=== PATIENT | female | born 1965 | race African-American/Black ===

== ENCOUNTER → 2016-10-30 | Outpatient (CLI) | payer OTHER ==
[2015-11-12 16:41] VITALS: BP 93/71
[~2016-10-30] MED LIST: ALPR0.5T PO; ALPR0.5T6 PO; ASPI325T11 PO; CLOP75TA PO; CLOP75TA57 PO; FAMO-63 PO; FERR-36 PO; FERR134T2 PO; LEVO25TA4 PO; LEVO75TA PO; METO1TAB7 PO; METO25TA4 PO; METO25TA9 PO; PANT40TA5 PO; SIMV20TA3 PO; SIMV5TAB5 PO; SPIR25TA3 PO
--- NOTE | 2016-10-30 13:11 | KCIC ---
PELVIS W/TV History: Severe chronic discharge for 6 months Comparison: None available at this time Findings: Multiple transabdominal sonographic images of the pelvis are submitted. Endometrium is thickened at 3.8 cm. Transverse uterus measured 9.2 cm. Transvaginal ultrasound: Multiple transvaginal sonographic images of the pelvis are submitted. Uterus measured up to 11.9 x 6.9 x 9.5 cm. Endometrium is thickened on the order of 3.5 cm, areas of internal hypervascularity on color Doppler imaging. There is mild free fluid in the endometrial cavity, also mild free fluid in the posterior cul-de-sac. Neither ovary could be visualized. There are nabothian cysts present. Impression: 1. Endometrium is thickened with areas of internal hypervascularity. Endometrial malignancy is possible, other consideration of hyperplasia. 2. Neither ovary could be visualized. 3. There is mild enlargement of the uterus. Electronically signed by: Golden Flores MD (10/30/2016 1:07 PM)
== END | disposition home or self-care (01) ==
LOC: KCIC US 11:58
PROVIDERS: ATTEND Nurse Practitioner Family
DX: N76.0 Acute vaginitis (principal); N85.2 Hypertrophy of uterus
CPT/HCPCS: 76830; 76856

== ENCOUNTER 2016-11-27 06:47 | Observation (INO) | payer OTHER ==
[~2016-11-27] VITALS: Ht 170.2 cm; Wt 172.4 kg
[2016-11-27] MEDS ORDERED: 0.9 % SODIUM CHLORIDE 10 ML DISP.SYRIN. IV PRN (07:00)
[2016-11-27] MEDS ORDERED: IV NORMAL SALINE 1000ML BAG 1,000 ML IV SCH (07:15)
[2016-11-27] MEDS ORDERED: ASPIRIN CHEWABLE 81 MG TABLET. PO ONE (07:15)
--- NOTE | 2016-11-27 07:18 | PHYS DOC ---
Past Medical History Past Medical History: Asthma, CAD, High Cholesterol, Hypothyroid, [place] Additional Past Medical Histor: Esophageal bleed, Cardiac Stents x2. Past Surgical History: Cholecystectomy, Coronary Bypass Surgery, Additional Information: quit smoking 2008 Alcohol Use: None Drug Use: None Adult General Chief Complaint Chief Complaint: CHEST PAIN HPI HPI This is a pleasant 50-year-old female with a history of coronary artery disease prior stenting and CABG with a history of hypertension, hyperlipidemia, and sleep apnea presents with chest pain that began 11:30 PM last night that awoke her from sleep. About 11:30 last night patient woke up with the start complaining of palpitations with tingling and numbness in her left arm that is now resolved. The pain is described as squeezing pressure in the center of her chest with no radiation to her neck abdomen or back. She's had it before specifically what her apneic spells or higher. She has noted increased exercise intolerance and dyspnea on exertion. The chest pain which she has a lasting anywhere from 3-5 minutes described as a dull ache eczema sitting on her chest. She denies any nausea, vomiting, diarrhea or other symptoms. She denies any trauma weight gain or swelling her lower legs. She denies any travel outside the country or recent changes in medications. She is presently taking daily Plavix and aspirin she is a patient of Dr. Ferrer cardiology. Differential diagnosis for chest pain: Pericarditis, myocarditis, endocarditis, pneumothorax, pneumonia, aortic dissection, esophageal spasm, esophagitis, peptic ulcer disease, acute coronary syndrome, mediastinitis, Boerhaave syndrome , musculoskeletal chest wall pain, costochondritis, intercostal strain, rib fracture, pulmonary contusion, pneumonitis, pleural effusion, pericardial effusion, pericardial tamponode, and pleurisy. Was considered upon arrival patient had an immediate EKG, given aspirin orally, placed on oxygen IV was placed and appropriate cardiac workup was initiated. Review of Systems Review of Systems Constitutional: Denies fever or chills [] Eyes: Denies change in visual acuity, redness, or eye pain [] HENT: Denies nasal congestion or sore throat [] Respiratory: Patient doesn't but her shortness of breath with exertion. Cardiovascular: No additional information not addressed in HPI [] GI: Denies abdominal pain, nausea, vomiting, bloody stools or diarrhea [] : Denies dysuria or hematuria [] Musculoskeletal: Denies back pain or joint pain [] Integument: Denies rash or skin lesions [] Neurologic: Denies headache, focal weakness or sensory changes [] Endocrine: Denies polyuria or polydipsia [] Current Medications Current Medications Current Medications Medications (Trade) Dose Ordered Sig/Harsha Start Time Stop Time Status Last Admin Dose Admin Aspirin (Children'S Aspirin) 324 mg 1X ONCE 11/27/16 07:15 11/27/16 07:16 DC Sodium Chloride (Normal Saline Flush) 10 ml QSHIFT PRN 11/27/16 07:00 Allergies Allergies Allergies Coded Allergies Type Severity Reaction Last Updated Verified diazepam Allergy Severe Hives/shortness of breath/increased anxiety 11/27/16 Yes Physical Exam Physical Exam Patient's vital signs were reviewed noted to be hypertensive without hypoxia tachypnea or tachycardia. Constitutional: Well developed, well nourished, no acute distress, non-toxic appearance. Patient is morbidly obese but speaks in 12-40 was sentences without obvious shortness of breath. [] HENT: Normocephalic, atraumatic, bilateral external ears normal, oropharynx moist, no oral exudates, nose normal. [] Eyes: PERRLA, EOMI, conjunctiva normal, no discharge. [] Neck: Normal range of motion, no tenderness, supple, no stridor. [] Cardiovascular:Heart rate regular rhythm, no murmur [] Lungs & Thorax: Bilateral breath sounds clear to auscultation [] Abdomen: Bowel sounds normal, soft, no tenderness, no masses, no pulsatile masses. [] Skin: Warm, dry, no erythema, no rash. [] Back: No tenderness, no CVA tenderness. [] Extremities: No tenderness, no cyanosis, no clubbing, ROM intact, no edema. Neurologic: Alert and oriented X 3, normal motor function, normal sensory function, no focal deficits noted. [] Psychologic: Affect normal, judgement normal, mood normal. [] Current Patient Data Vital Signs Vital Signs Date Time Temp Pulse Resp B/P (MAP) Pulse Ox O2 Delivery O2 Flow Rate FiO2 11/27/16 08:18 54 16 133/83 (100) 97 Room Air 11/27/16 06:54 98.0 98.0 Lab Values Laboratory Tests Test 11/27/16 06:30 11/27/16 07:00 11/27/16 07:20 POC Urine HCG, Qualitative Hcg negative (Negative) White Blood Count 6.0 x10^3/uL (4.0-11.0) Red Blood Count 4.27 x10^6/uL (3.50-5.40) Hemoglobin 13.5 g/dL (12.0-15.5) Hematocrit 40.0 % (36.0-47.0) Mean Corpuscular Volume 94 fL (79-100) Mean Corpuscular Hemoglobin 32 pg (25-35) Mean Corpuscular Hemoglobin Concent 34 g/dL (31-37) Red Cell Distribution Width 12.8 % (11.5-14.5) Platelet Count 238 x10^3/uL (140-400) Neutrophils (%) (Auto) 47 % (31-73) Lymphocytes (%) (Auto) 39 % (24-48) Monocytes (%) (Auto) 9 % (0-9) Eosinophils (%) (Auto) 4 % (0-3) H Basophils (%) (Auto) 1 % (0-3) Neutrophils # (Auto) 2.8 x10^3uL (1.8-7.7) Lymphocytes # (Auto) 2.3 x10^3/uL (1.0-4.8) Monocytes # (Auto) 0.5 x10^3/uL (0.0-1.1) Eosinophils # (Auto) 0.2 x10^3/uL (0.0-0.7) Basophils # (Auto) 0.1 x10^3/uL (0.0-0.2) Sodium Level 141 mmol/L (136-145) Potassium Level 4.0 mmol/L (3.5-5.1) Chloride Level 106 mmol/L (98-107) Carbon Dioxide Level 24 mmol/L (21-32) Anion Gap 11 (6-14) Blood Urea Nitrogen 12 mg/dL (7-20) Creatinine 1.0 mg/dL (0.6-1.0) Estimated GFR (Cockcroft-Gault) 71.3 Glucose Level 114 mg/dL (70-99) H Calcium Level 9.6 mg/dL (8.5-10.1) Magnesium Level 1.9 mg/dL (1.8-2.4) Total Bilirubin 0.4 mg/dL (0.2-1.0) Direct Bilirubin 0.1 mg/dL (0.0-0.2) Aspartate Amino Transferase (AST) 28 U/L (15-37) Alanine Aminotransferase (ALT) 30 U/L (14-59) Alkaline Phosphatase 68 U/L (46-116) Creatine Kinase 265 U/L (26-192) H Creatine Kinase MB (Mass) 1.6 ng/mL (0.0-3.6) Creatine Kinase MB Relative Index 0.6 % (0-4) Troponin I Quantitative < 0.017 ng/mL (0.000-0.055) BT-Aap-A-Type Natriuretic Peptide 100 pg/mL (0-124) Total Protein 7.5 g/dL (6.4-8.2) Albumin 3.4 g/dL (3.4-5.0) Lipase 261 U/L (73-393) Thyroid Stimulating Hormone (TSH) 2.267 uIU/mL (0.358-3.74) Urine Collection Type Void Urine Color Yellow Urine Clarity Clear Urine pH 5.0 Urine Specific [place] 1.020 Urine Protein Negative mg/dL (NEG-TRACE) Urine Glucose (UA) Negative mg/dL (NEG) Urine Ketones (Stick) Negative mg/dL (NEG) Urine Blood Negative (NEG) Urine Nitrite Negative (NEG) Urine Bilirubin Negative (NEG) Urine Urobilinogen Dipstick 0.2 mg/dL (0.2 mg/dL) Urine Leukocyte Esterase Negative (NEG) Urine RBC 0 /HPF (0-2) Urine WBC 1-4 /HPF (0-4) Urine Squamous Epithelial Cells Mod /LPF Urine Bacteria Few /HPF (0-FEW) Urine Mucus Marked /LPF Laboratory Tests 11/27/16 07:00 Laboratory Tests 11/27/16 07:00 EKG EKG EKG read by Dr. Garrido timed 6:55 AM 11/27/2016 demonstrates sinus rhythm with a heart rate of 69 [place] interval is normal at 158 QRS of 94 QTC of 424. [] Radiology/Procedures Radiology/Procedures [] IMAGING REPORT Signed PATIENT: CARYN GUY ACCOUNT: [id number] : 1965 LOCATION: 2 [facility]OUTH AGE: 49 SEX: F EXAM STATUS: ADM IN ORD. PHYSICIAN: THANH MONTAÑO MD REASON: CHEST PAIN PROCEDURE: Left Heart Catheterization &LV APPROVED REPORT HISTORY coronary artery disease: previous PCI (The PCI date was ), hypertension, previous CABG (The CABG date was ), dyslipidemia. INDICATION The indication(s) include : unstable angina , chest pain, dyspnea. CASE TECHNIQUE The patient was brought electively into the cardiac catheterization lab. A timeout was performed confirming the patient's name, date of , procedure, and site of procedure. All necessary parties were wearing the appropriate personal protective equipment and radiation monitoring devices. After explaining the risks and benefits of the procedure, informed consent was obtained.(See nursing notes for medications administered). The right groin was sterilely prepped and draped. The right femoral groin was infiltrated with 1% Lidocaine subcutaneous anesthesia. During this case, Fluoroscopy and low osmolar contrast were used for imaging. A sheath was inserted into the right femoral artery without difficulty. Coronary angiography was performed using coronary diagnostic catheters. The left coronary system was accessed and visualized with a Diagnostic catheter. The right coronary system was accessed and visualized with a Diagnostic catheter. The left ventricle was accessed and visualized with a Diagnostic catheter. The left internal mammary artery was accessed and visualized with a Diagnostic catheter. Left ventricular/Aortic Valve gradient assessed on pullback. Left ventriculogram was performed in BEY projection. An aortogram of the ascending aorta was performed. Pre-demployment femoral angiogram was performed . Closure device was deployed with a Angioseal without any complications. The patient tolerated the procedure well and there were no complications associated with the procedure. Coronary Angiography The patient's coronary anatomy is right dominant. The left main coronary artery is a medium size vessel free of disease. The left main bifurcates to the left anterior descending and circumflex. The left anterior descending artery is a medium size vessel with stenosis. There is a 100% stenosis in the mid segment. The first diagonal branch is a small size vessel free of disease. The circumflex artery is a large size vessel free of disease. The first obtuse marginal branch is a medium size vessel free of disease. The second obtuse marginal branch is a small size vessel free of disease. The third obtuse marginal branch is a small size vessel free of disease. The right coronary artery is a medium size vessel free of disease. The right posterior descending artery is a small size vessel free of disease. The right posterolateral branch is a small size vessel free of disease. The left internal mammary artery to the mid left anterior descending artery segment is patent the LAD is a very small caliber vessel distal to the anastomosis. Left Ventriculography The left ventricle is normal in size with normal contractility. The left ventricular ejection fraction is estimated to be 55%. The left ventricular end diastolic pressure is 18 mmHg. There was no gradient across the aortic valve upon pullback. Conclusion This patient with iliamna vessel coronary artery disease passing the graft to the LAD that is open and normal. The LAD and the GUERRERO graft are very small in caliber. I do not see anything that would need to be stented in this patient. I would recommend medical treatment and consider a GI workup. DICTATED and SIGNED BY: THANH MONTAÑO MD DATE: 11/12/15 [id number] CC: THANH MONTAÑO MD; NELLY GUEVARA APRN ~ Course & Med Decision Making Course & Med Decision Making Pertinent Labs and Imaging studies reviewed. (See chart for details) I have reviewed nursing notes, history and physical findings, and present laboratory work as well as chest x-ray and EKG returned. At this point patient' s troponin is negative but given duration of symptoms and her history. She is at moderate risk for acute coronary event. Counseling Case Manager note: Assembly Line Robot Operator called at of the service Dr. Montaño Consult called back initially paged at 8:20 AM Discussed the case I presented and they agreed with admission. Time of acceptance 824 AM Differential diagnosis for chest pain: Pericarditis, myocarditis, endocarditis, pneumothorax, pneumonia, aortic dissection, esophageal spasm, esophagitis, peptic ulcer disease, acute coronary syndrome, mediastinitis, Boerhaave syndrome , musculoskeletal chest wall pain, costochondritis, intercostal strain, rib fracture, pulmonary contusion, pneumonitis, pleural effusion, pericardial effusion, pericardial tamponode, and pleurisy. Was considered upon arrival given patient's history and risk factors. History: Highly suspicious 2 points moderately suspicious 1. slightly suspicious 0 point EKG: ST segment depression 2. nonspecific repolarization disturbance 1. normal 0 point Age: Greater than 65 2 points, 65-45 1., less than 45 years old 0 points Risk factors:> 3 risk factors 2 points, 1-2 risk factors one point, no risk factors 0 point Troponin: > 2 times normal 2 points, 1-2 times normal 1., normal limits 0 point Total score: Score % pts MACE/n MACE Policy 0-3 32% 1.9% 0.05% Discharge 4-6 51% 413/3136 13% 1.3% Observation Risk management 7-10 17% 518/1045 50% 2.8% Observation Treatment, CAG She was determined to have an intermediate risk of acute coronary event so observation risk management to include a stress test and possible catheterization will be needed with his hospitalization. Patient denied discussed findings and agreed to admission 8:29 AM Impression: Chest pain unclear etiology likely cardiac, hypertension chronic in nature Disposition: Admission to the hospital cardiology service Dragon Disclaimer Dragon Disclaimer This electronic medical record was generated, in whole or in part, using a voice recognition dictation system. Departure Departure Impression: Primary Impression: Chest pain Additional Impression: Hypertension Disposition: ADMITTED INPATIENT Admitting Physician: Thanh Montaño Condition: GUARDED Referrals: NELLY GUEVARA APRN (PCP) Problem Qualifiers ABDIEL GARRIDO MD Nov 27, 2016 07:18
[2016-11-27 07:26] LABS: BASO # 0.1 x10^3/uL (0.0-0.2); BASO % 1 % (0-3); EOS % 4 % (0-3); HEMOGLOBIN 13.5 g/dL (12.0-15.5); LYMPH # 2.3 x10^3/uL (1.0-4.8); LYMPH % 39 % (24-48); MEAN CORPUSCULAR HEMOGLOBIN 32 pg (25-35); MEAN CORPUSCULAR HGB CONC 34 g/dL (31-37); MEAN CORPUSCULAR VOLUME 94 fL (79-100); MONO % 9 % (0-9); NEUT % 47 % (31-73); PLATELET COUNT 238 x10^3/uL (140-400); RED BLOOD COUNT 4.27 x10^6/uL (3.50-5.40); RED CELL DISTRIBUTION WIDTH 12.8 % (11.5-14.5)
[2016-11-27 07:31] LABS: BILIRUBIN,URINE NEGATIVE (NEG); GLUCOSE,URINE NEGATIVE (NEG); NITRITE,URINE NEGATIVE (NEG); PROTEIN,URINE NEGATIVE (NEG-TRACE); UROBILINOGEN,URINE 0.2 mg/dL (0.2 mg/dL)
[2016-11-27 07:38] LABS: CALCIUM 9.6 mg/dL (8.5-10.1); GFR 71.3
[2016-11-27 07:40] LABS: BACTERIA,URINE FEW /HPF (0-FEW); RBC,URINE 0 /HPF (0-2); SQUAMOUS EPITHELIAL CELL,UR MOD /LPF
[2016-11-27 07:43] LABS: ALBUMIN 3.4 g/dL (3.4-5.0); DIRECT BILIRUBIN 0.1 mg/dL (0.0-0.2); MAGNESIUM 1.9 mg/dL (1.8-2.4); TOTAL BILIRUBIN 0.4 mg/dL (0.2-1.0); TOTAL PROTEIN 7.5 g/dL (6.4-8.2)
[2016-11-27 07:50] LABS: CKMB MASS 1.6 ng/mL (0.0-3.6)
[2016-11-27] MEDS ORDERED: ONDANSETRON PF 4 MG/2 ML VIAL. IV PRN (08:30)
--- NOTE | 2016-11-27 09:00 | RAD ---
EXAM: Chest 2 views. HISTORY: Shortness of breath, tachycardia. COMPARISON: 11/11/2015. FINDINGS: Frontal and lateral views of the chest are obtained. There are changes of coronary artery bypass grafting. There are no confluent infiltrates. There is no pneumothorax or pleural effusion. The heart is not enlarged. IMPRESSION: 1. No confluent infiltrates.
[2016-11-27] MEDS: IV NORMAL SALINE 1000ML BAG 1,000 ML IV SCH ×2 (10:09→18:19)
--- NOTE | 2016-11-27 10:48 | EKG ---
[facility] [address] [place] [address] Test Date: 2016-11-27 Test Time: 06:55:27 Pat Name: CARYN GUY Department: Room: Gender: F Hematology Supervisor: : 1965 Requested By: ABDIEL GARRIDO Order Number: [id number] Reading MD: Measurements Intervals [place] Rate: 69 P: 41 MD: 158 QRS: 84 QRSD: 94 T: 97 QT: 394 QTc: 424 Interpretive Statements SINUS RHYTHM R-S TRANSITION ZONE IN V LEADS DISPLACED TO THE LEFT T ABNORMALITY IN HIGH LATERAL LEADS ABNORMAL ECG RI6.01 No previous ECG available for comparison
[2016-11-27 11:30] VITALS: BP 128/65
--- NOTE | 2016-11-27 13:30 | PDOC1 ---
History and Physical Date of Admission Date of Admission DATE: 11/27/16 TIME: 13:14 Identification/Chief Complaint Chief Complaint chest palpitations Problems: Source Source: Patient History of Present Illness History of Present Illness Ms Avilez is a 50 yr old female who presents with history of chest palpitations. She has a history of [place], and CABG. Last night she was awakened from sleep with her heart pounding. She was having some pain and shortness of breath during the episode. It lasted about 1 minute then subsided, the patient then states she was able to go back to bed. Patient states that over the past month she does feel like she has had progressive shortness of breath, but no episodes of chest pain or palpitations. She did mention she feels stressed right now due to various issues with family and work. Currently the patient feels fine. She was able to walk to the bathroom and get back in bed with only getting mildly short of breath. She currently reports no chest pain or palpitations Past Medical History Cardiovascular: CAD, Hyperlipidemia Pulmonary: Other Psych: Anxiety Endocrine: Hypothyroidism Past Surgical History Past Surgical History: Cholecystectomy, CABG, , Tubal Ligation, Hysterectomy Family History Family History: Cancer, Coronary Artery Disease, Diabetes Social History ALCOHOL: none Drugs: None Current Problem List Problem List Problems Medical Problems: (1) Chest pain Status: Acute (2) Hypertension Status: Acute Problems: Current Medications Current Medications Current Medications Aspirin (Children'S Aspirin) 324 mg 1X ONCE PO ; Start 11/27/16 at 07:15; Stop 11/27/16 at 07:16; Status DC Sodium Chloride 1,000 ml @ 1,000 mls/hr Q1H IV Last administered on 11/27/16t 07:37; Start 11/27/16 at 07:15; Stop 11/27/16 at 08:14; Status DC Sodium Chloride (Normal Saline Flush) 10 ml QSHIFT PRN IV AFTER MEDS AND BLOOD DRAWS; Start 11/27/16 at 07:00 Ondansetron HCl (Zofran) 4 mg PRN Q8HRS PRN IV NAUSEA/VOMITING; Start 11/27/16 at 08:30; Stop 11/28/16 at 08:29 Sodium Chloride 1,000 ml @ 100 mls/hr Q10H IV Last administered on 11/27/16t 10:09; Start 11/27/16 at 08:25; Stop 11/28/16 at 08:24 Active Scripts Active Reported Pantoprazole Sodium 40 Mg Tablet.dr 40 Mg PO DAILY Clopidogrel (Clopidogrel Bisulfate) 75 Mg Tablet 75 Mg PO DAILY Aspirin Ec (Aspirin) 325 Mg Tablet.dr 325 Mg PO DAILY Alprazolam 0.5 Mg Tablet 0.5 Mg PO BID Simvastatin 5 Mg Tablet 20 Mg PO HS Levothyroxine Sodium 25 Mcg Tablet 100 Mcg PO DAILY Spironolactone 25 Mg Tablet 25 Mg PO DAILY Allergies Allergies: Coded Allergies: diazepam (Verified Allergy, Severe, Hives/shortness of breath/increased anxiety, 11/27/16) Physical Exam General: Alert, No acute distress Lungs: Clear to auscultation (b/l), Normal air movement Heart: S1S2, RRR Extremities: Normal pulses (2/4 radial b/l) Vitals Vitals Vital Signs Date Time Temp Pulse Resp B/P (MAP) Pulse Ox O2 Delivery O2 Flow Rate FiO2 11/27/16 12:30 Room Air 11/27/16 11:30 97.5 65 20 128/65 (86) 97 97.5 Labs Labs Laboratory Tests Test 11/27/16 06:30 11/27/16 07:00 11/27/16 07:20 11/27/16 12:21 Bedside Urine HCG, Qualitative Hcg negative (Negative) White Blood Count 6.0 x10^3/uL (4.0-11.0) Red Blood Count 4.27 x10^6/uL (3.50-5.40) Hemoglobin 13.5 g/dL (12.0-15.5) Hematocrit 40.0 % (36.0-47.0) Mean Corpuscular Volume 94 fL (79-100) Mean Corpuscular Hemoglobin 32 pg (25-35) Mean Corpuscular Hemoglobin Concent 34 g/dL (31-37) Red Cell Distribution Width 12.8 % (11.5-14.5) Platelet Count 238 x10^3/uL (140-400) Neutrophils (%) (Auto) 47 % (31-73) Lymphocytes (%) (Auto) 39 % (24-48) Monocytes (%) (Auto) 9 % (0-9) Eosinophils (%) (Auto) 4 % (0-3) Basophils (%) (Auto) 1 % (0-3) Neutrophils # (Auto) 2.8 x10^3uL (1.8-7.7) Lymphocytes # (Auto) 2.3 x10^3/uL (1.0-4.8) Monocytes # (Auto) 0.5 x10^3/uL (0.0-1.1) Eosinophils # (Auto) 0.2 x10^3/uL (0.0-0.7) Basophils # (Auto) 0.1 x10^3/uL (0.0-0.2) Sodium Level 141 mmol/L (136-145) Potassium Level 4.0 mmol/L (3.5-5.1) Chloride Level 106 mmol/L (98-107) Carbon Dioxide Level 24 mmol/L (21-32) Anion Gap 11 (6-14) Blood Urea Nitrogen 12 mg/dL (7-20) Creatinine 1.0 mg/dL (0.6-1.0) Estimated GFR (Cockcroft-Gault) 71.3 Glucose Level 114 mg/dL (70-99) Calcium Level 9.6 mg/dL (8.5-10.1) Magnesium Level 1.9 mg/dL (1.8-2.4) Total Bilirubin 0.4 mg/dL (0.2-1.0) Direct Bilirubin 0.1 mg/dL (0.0-0.2) Aspartate Amino Transf (AST/SGOT) 28 U/L (15-37) Alanine Aminotransferase (ALT/SGPT) 30 U/L (14-59) Alkaline Phosphatase 68 U/L (46-116) Creatine Kinase 265 U/L (26-192) Creatine Kinase MB (Mass) 1.6 ng/mL (0.0-3.6) Creatine Kinase MB Relative Index 0.6 % (0-4) Troponin I Quantitative < 0.017 ng/mL (0.000-0.055) PQ-Qfa-S-Type Natriuretic Peptide 100 pg/mL (0-124) Total Protein 7.5 g/dL (6.4-8.2) Albumin 3.4 g/dL (3.4-5.0) Lipase 261 U/L (73-393) Thyroid Stimulating Hormone (TSH) 2.267 uIU/mL (0.358-3.74) Urine Collection Type Void Urine Color Yellow Urine Clarity Clear Urine pH 5.0 Urine Specific [place] 1.020 Urine Protein Negative mg/dL (NEG-TRACE) Urine Glucose (UA) Negative mg/dL (NEG) Urine Ketones (Stick) Negative mg/dL (NEG) Urine Blood Negative (NEG) Urine Nitrite Negative (NEG) Urine Bilirubin Negative (NEG) Urine Urobilinogen Dipstick 0.2 mg/dL (0.2 mg/dL) Urine Leukocyte Esterase Negative (NEG) Urine RBC 0 /HPF (0-2) Urine WBC 1-4 /HPF (0-4) Urine Squamous Epithelial Cells Mod /LPF Urine Bacteria Few /HPF (0-FEW) Urine Mucus Marked /LPF Glucose (Fingerstick) 92 mg/dL (70-99) Laboratory Tests Test 11/27/16 06:30 11/27/16 07:00 11/27/16 07:20 11/27/16 12:21 Bedside Urine HCG, Qualitative Hcg negative (Negative) White Blood Count 6.0 x10^3/uL (4.0-11.0) Red Blood Count 4.27 x10^6/uL (3.50-5.40) Hemoglobin 13.5 g/dL (12.0-15.5) Hematocrit 40.0 % (36.0-47.0) Mean Corpuscular Volume 94 fL (79-100) Mean Corpuscular Hemoglobin 32 pg (25-35) Mean Corpuscular Hemoglobin Concent 34 g/dL (31-37) Red Cell Distribution Width 12.8 % (11.5-14.5) Platelet Count 238 x10^3/uL (140-400) Neutrophils (%) (Auto) 47 % (31-73) Lymphocytes (%) (Auto) 39 % (24-48) Monocytes (%) (Auto) 9 % (0-9) Eosinophils (%) (Auto) 4 % (0-3) Basophils (%) (Auto) 1 % (0-3) Neutrophils # (Auto) 2.8 x10^3uL (1.8-7.7) Lymphocytes # (Auto) 2.3 x10^3/uL (1.0-4.8) Monocytes # (Auto) 0.5 x10^3/uL (0.0-1.1) Eosinophils # (Auto) 0.2 x10^3/uL (0.0-0.7) Basophils # (Auto) 0.1 x10^3/uL (0.0-0.2) Sodium Level 141 mmol/L (136-145) Potassium Level 4.0 mmol/L (3.5-5.1) Chloride Level 106 mmol/L (98-107) Carbon Dioxide Level 24 mmol/L (21-32) Anion Gap 11 (6-14) Blood Urea Nitrogen 12 mg/dL (7-20) Creatinine 1.0 mg/dL (0.6-1.0) Estimated GFR (Cockcroft-Gault) 71.3 Glucose Level 114 mg/dL (70-99) Calcium Level 9.6 mg/dL (8.5-10.1) Magnesium Level 1.9 mg/dL (1.8-2.4) Total Bilirubin 0.4 mg/dL (0.2-1.0) Direct Bilirubin 0.1 mg/dL (0.0-0.2) Aspartate Amino Transf (AST/SGOT) 28 U/L (15-37) Alanine Aminotransferase (ALT/SGPT) 30 U/L (14-59) Alkaline Phosphatase 68 U/L (46-116) Creatine Kinase 265 U/L (26-192) Creatine Kinase MB (Mass) 1.6 ng/mL (0.0-3.6) Creatine Kinase MB Relative Index 0.6 % (0-4) Troponin I Quantitative < 0.017 ng/mL (0.000-0.055) FU-Grm-Q-Type Natriuretic Peptide 100 pg/mL (0-124) Total Protein 7.5 g/dL (6.4-8.2) Albumin 3.4 g/dL (3.4-5.0) Lipase 261 U/L (73-393) Thyroid Stimulating Hormone (TSH) 2.267 uIU/mL (0.358-3.74) Urine Collection Type Void Urine Color Yellow Urine Clarity Clear Urine pH 5.0 Urine Specific [place] 1.020 Urine Protein Negative mg/dL (NEG-TRACE) Urine Glucose (UA) Negative mg/dL (NEG) Urine Ketones (Stick) Negative mg/dL (NEG) Urine Blood Negative (NEG) Urine Nitrite Negative (NEG) Urine Bilirubin Negative (NEG) Urine Urobilinogen Dipstick 0.2 mg/dL (0.2 mg/dL) Urine Leukocyte Esterase Negative (NEG) Urine RBC 0 /HPF (0-2) Urine WBC 1-4 /HPF (0-4) Urine Squamous Epithelial Cells Mod /LPF Urine Bacteria Few /HPF (0-FEW) Urine Mucus Marked /LPF Glucose (Fingerstick) 92 mg/dL (70-99) VTE Prophylaxis Ordered VTE Prophylaxis Devices: Yes VTE Pharmacological Prophylaxi: Yes Assessment/Plan Assessment/Plan Ms Avilez is a 50 yr old female who presents with heart palpitations 1) angina - serial troponin, ekg, echo 2) arrhythmia - as above If any of above tests are abnormal will do heart cath GOLD MALDONADO MD Nov 27, 2016 13:29
[2016-11-27 15:00] VITALS: BP 127/44
--- NOTE | 2016-11-27 18:27 | CARD ---
APPROVED REPORT EXAM: Two-dimensional and M-mode echocardiogram with Doppler and color Doppler. Other Information Quality : Average Rhythm : NSR INDICATION Dyspnea Chest Pain 2D DIMENSIONS RVDd2.5 (2.9-3.5cm)Left Atrium(2D)4.3 (1.6-4.0cm) IVSd1.1 (0.7-1.1cm)Aortic Root(2D)2.4 (2.0-3.7cm) LVDd5.3 (3.9-5.9cm)LVOT Diameter2.1 (1.8-2.4cm) PWd1.1 (0.7-1.1cm)LVDs3.6 (2.5-4.0cm) FS (%) 32.6 %SV82.5 ml LVEF(%)60.0 (>50%) Aortic Valve AoV Peak Isaias.110.0cm/sAoV VTI22.6cm AO Peak GR.4.8mmHgLVOT Peak Isaias.70.6cm/s LVOT VTI 16.31cmAO Mean GR.3mmHg SHARYN (VMAX)2.33kf0AJE (VTI)2.41cm2 Mitral Valve MV E Srcbatsv679.1cm/sMV DECEL [id number] MV A Mgvasqfw22.4cm/sMV QIW51jo E/A Ratio1.4MV A [id number] MVA (PHT)3.21cm2 TDI E/Lateral E'9.4E/Medial E'13.6 Pulmonary Valve PV Peak Lzxpzgmz233.9cm/sPV Peak Grad.6mmHg RVOT VTI19.7cm Tricuspid Valve TR P. Xtwurgoj548ct/sRAP HUFJYEME0zwMo TR Peak Gr.00kuNiBLXB81qmZn Pulmonary Vein S1 Hbdaxalh95.1cm/sD2 Xzugvyjl32.2cm/s LEFT VENTRICLE The left ventricle is normal size. There is normal left ventricular wall thickness. Left ventricle sy stolic function is normal. The Ejection Fraction is 60%. Dyskinesis of the apical septal wall. Remain muna of the LV appears to have normal function. The left ventricular diastolic function and filling is normal for age. There is no ventricular septal defect visualized. RIGHT VENTRICLE The right ventricle is normal size. The right ventricular systolic function is normal. ATRIA The left atrium is borderline dilated. The right atrium size is normal. The interatrial septum is int act with no evidence for an atrial septal defect or patent foramen ovale as noted on 2-D or Doppler i maging. AORTIC VALVE The aortic valve is mildly calcified. The aortic valve is trileaflet. Doppler and Color Flow revealed no significant aortic regurgitation. There is no significant aortic valvular stenosis. MITRAL VALVE The mitral valve is normal in structure and function. There is no mitral valve stenosis. Doppler and Color Flow revealed no mitral valve regurgitation noted. TRICUSPID VALVE The tricuspid valve is not well visualized. Doppler and Color Flow revealed trace to mild tricuspid r egurgitation. The PA pressure was estimated at 29 mmHg. There is no tricuspid valve stenosis. PULMONIC VALVE The pulmonic valve is not well visualized. Doppler and Color Flow revealed no pulmonic valvular regur gitation. There is no pulmonic valvular stenosis. GREAT VESSELS The aortic root is normal in size. Normal pulmonary venous flow (Doppler). The IVC was not well visua lized but appeared normal in size. PERICARDIAL EFFUSION There is no evidence of significant pericardial effusion. Critical Notification Critical Value: No <Conclusion> Left ventricle systolic function is normal. The Ejection Fraction is 60%. The left atrium is borderline dilated. The right atrium size is normal. The aortic valve is mildly calcified. The aortic valve is trileaflet. There is no significant aortic valvular stenosis. The mitral valve is normal in structure and function. Doppler and Color Flow revealed trace to mild tricuspid regurgitation. The PA pressure was estimated at 29 mmHg. The pulmonic valve is not well visualized. There is no evidence of significant pericardial effusion.
[2016-11-27 19:05] VITALS: BP 110/68
[2016-11-27] MEDS ORDERED: SIMVASTATIN 20 MG TABLET PO ONE (23:00)
[2016-11-27] MEDS ORDERED: ALPRAZolam 0.5 MG TABLET PO ONE (23:00)
[2016-11-27 23:09] VITALS: BP 120/30
--- NOTE | 2016-11-28 00:46 | ACF ---
Admission Forms Criteria CARDIOLOGY GRG Clinical Indications for Admission to Inpatient Care ( Place 'X' for any and all applicable criteria): Hospital admission is needed for appropriate care of the patient because of ANY ONE of the following (1): [ ] I. Hemodynamic instability as indicated by ALL of the following (1)(2)(3) (4)(5) [ ]a) Vital signs or other findings not as expected for chronic patient condition or baseline [ ]b) Instability indicated by ANY ONE of the following: [ ]i) Hypotension [ ]ii) Symptomatic Tachycardia unresponsive to treatment ( e.g., analgesia, fluids, sedation as indicated) [ ]iii) Inadequate perfusion indicated by ANY ONE of the following: [ ] 1) Lactic acidosis (> 2 mmol/L) [ ] 2) New abnormal capillary refill (> 3 seconds) [ ] 3) Reduced urine output [ ] 4) New altered mental status [ ]iv) Orthostatic vital sign changes unresponsive to treatment (e.g., fluids) [ ]v) IV inotropic or vasopressor medication required to maintain adequate blood pressure or perfusion [ ] II. Severe heart failure as indicated by ANY ONE of the following(17)(18) [ ]a) Respiratory distress [ ]b) Hypotension [ ]c) Anasarca (refractory to outpatient therapy) [ ]d) Cardiac arrhythmias of immediate concern [ ]e) Myocardial ischemia [ ] III. Cardiac arrhythmias or findings of immediate concern indicated by ANY ONE of the following (19)(20): [ ] a) Heart rhythms that are inherently dangerous or unstable indicated by ANY ONE of the following (21)(22)(23): [ ] i) Resuscitated ventricular fibrillation or cardiac arrest [ ] ii) Ventricular escape rhythm [ ] iii) Sustained ventricular tachycardia (30 seconds or more of ventricular rhythm at greater than 100 beats per minute) [ ] iv) Nonsustained ventricular tachycardia and ANY ONE of the following: [ ] 1) Suspected cardiac ischemia as cause or consequence of ventricular tachycardia [ ] 2) In setting of acute myocarditis [ ] b) Unstable cardiac conduction defects indicated by ANY ONE of the following(23)(24)(25) [ ] i) Type II second-degree atrioventricular block [ ]ii) Third-degree atrioventricular block [ ]iii) New-onset left bundle branch block with suspected myocardial ischemia [ ]c) Any heart rhythm and ANY ONE of the following (21)(22)(26)(27) (28) [ ] i) Continuous long-term ECG monitoring needed (e.g., initiation of drug requiring monitoring for more than 24 hours) [ ] ii) Patient has automatic implanted cardioverter defibrillator that is repeatedly firing, malfunctioning, or in need of immediate adjustment of settings beyond the scope of ambulatory or observation care [ ]d) Heart rhythms of concern due to ANY ONE of the following: [ ] i) Hypotension [ ] ii) Respiratory distress [ ] iii) Association with other significant symptoms (e.g., bradycardia with syncope or ongoing dizziness, supraventricular tachycardia with chest pain (14)(15)(17) [ ] IV. Monitoring for cardiac contusion beyond the scope of observation care needed [A](30)(31)(32) [ ] V. Surgical or device complication (e.g., valve replacement complication , pacemaker dysfunction) (35)(41)(44)(45)(46) [ ] . Inpatient palliative care needed. [B](49) Also use Inpatient Palliative Care Criteria [ ] VII. Nonbacterial thrombotic (marantic) endocarditis (36)(43)(47)(48) [X] VIII. Cardiology condition, symptom, or finding for which emergency and observation care has failed or are not considered appropriate. [ ] IX. Acute valvular disease requiring inpatient as indicated by ANY ONE of the following (41) [ ]a) Acute valvular regurgitation (42) [ ]b) Noninfectious valvulitis (43) [ ]c) Obstructive valve thrombosis [ ]d) Paravalvular leak [ ]e) Other significant valvular disorder remaining after emergency or observation level of care (as appropriate) [ ]X. Pericardial disease requiring inpatient treatment as indicated by ANY ONE of the following (33)(34)(35)(36)(37) [ ]a) Suspected tamponade (38)(39)(40) [ ]b) Hemopericardium [ ]c) Other significant pericardial disorder remaining after emergency or observation level of care (as appropriate) [ ] XI. Cardiac ischemia beyond scope of emergency and observation care. [ ] XII. Hypertension requiring inpatient treatment as indicated by ANY ONE of the following (6)(7)(8) [ ]a) SBP greater than 220 mm Hg or DBP greater than 120 mmHg despite treatment [ ]b) SBP greater than 140 mm Hg or DBP greater than 100 mm Hg with evidence of acute end organ damage as indicated by ANY ONE of the following [ ] i) Encephalopathy [ ] ii) Acute renal failure as indicated by new onset of ANY ONE of the following (9)(10)(11)(12)(13) [ ]1) 3-fold rise in serum creatinine from baseline [ ]2) Serum creatinine greater than 4 mg/dL ( 354 micromoles/L) with acute rise greater than 0.5 mg/dL (44.2 micromoles/L) [ ]3) Reduction of more than 75% in estimated glomerular filtration rate from baseline [ ]4) Estimated glomerular filtration rate less than 35 mL/min/1.73m2 (0.59 mL/sec/1.73m2) in child up to 18 years of age [ ]5) Cessation of urine output indicated by ALL of the following [ ]A. Adequate volume status [ ]B. Inadequate urine output as indicated by ANY ONE of the following [ ]a. Urine output less than 0.3 mL/kg/hr for 24 hours [ ]b. Anuria (urine output less than 0.1 mL/kg/hr) for 12 hours [ ] iii) Aortic dissection [ ] iv) Myocardial Ischemia [ ] v) Left ventricular heart failure [ ]vi) Retinal Hemorrhage [ ]vii) Other significant finding [ ]c) Hypertension in child requiring inpatient treatment as indicated by ALL of the following(14)(15)(16) [ ] i) Outpatient treatment not effective, not available, or not appropriate [ ]ii) SBP or DBP greater than 95th percentile for age [ ]iii) Evidence of acute end organ damage as indicated by ANY ONE of the following [ ]1) Altered mental status [ ]2) Acute renal failure as indicated by new onset of ANY ONE of the following(9)(10)(11)(12)(13) [ ]A. 3-fold rise in serum creatinine from baseline [ ]B. Serum creatinine greater than 4 mg/dL (354 micromoles/L) with acute rise greater than 0.5 mg/dL (44.2 micromoles/L) [ ]C. Reduction of more than 75% in estimated glomerular filtration rate from baseline [ ]D. Estimated glomerular filtration rate less than 35 mL/min/1.73m2 (0.59 mL/sec/1.73m2) in child up to 18 years of age [ ]E. Cessation of urine output indicated by ALL of the following [ ]a. Adequate volume status [ ]b. Inadequate urine output as indicated by ANY ONE of the following [ ]i) Urine output less than 0.3 mL/kg/hr for 24 hours [ ]ii) Anuria ( urine output less than 0.1 mL/kg/hr) for 12 hours [ ]3) Severe headache [ ]4) Visual disturbance [ ]5) Retinal hemorrhage [ ]6) Other significant finding [ ]XIII. Complications of transplanted heart indicated by ANY ONE of the following(61): [ ]a) Acute graft rejection requiring inpatient management (eg, intravenous immunosuppression)(62)(63) [ ]b) Acute graft heart failure indicated by ANY ONE of the following(64): [ ]i) Hemodynamic instability [ ]ii) Cardiac arrhythmias of immediate concern [ ]iii) Pulmonary edema that is very severe (eg, mechanical ventilation needed, imminent or likely, need for 100% oxygen to keep oxygen saturation above 90%) [ ]iv) Pulmonary edema that is persistent as indicated by ALL of the following: [ ]1) New need for oxygen therapy to keep oxygen saturation above 90% (or increased FiO2 need from baseline) [ ]2) Has not improved sufficiently with emergency department or observation care IV diuretics or other heart failure treatments[E] [ ]v) Altered mental status that is severe or persistent [ ]vi) Increased creatinine (new on laboratory test) with reduction of more than 50% in estimated glomerular filtration rate from baseline [ ]vii) Progressively (ongoing) rising creatinine (known from past laboratory test) with reduction of more than 25% in estimated glomerular filtration rate from baseline [ ]viii) Acute renal failure [ ]ix) Acute peripheral ischemia (eg, examination shows pulseless, cool, mottled, or cyanotic extremity) [ ]x) Pulmonary artery catheter monitoring needed [ ]xi) Other sign or symptom of heart failure requiring inpatient treatment (ie, too severe or not responsive to outpatient and observation care treatment) [ ]c) Infection requiring inpatient management (eg, Hemodynamic instability, need for intravenous antimicrobial treatment)(66)(67)(68)(69)(70) [ ]d) Cardiac allograft vasculopathy requiring inpatient management ( eg evidence of cardiac ischemia)(71) [ ]e) Other complication of transplanted heart (eg, stroke, severe pulmonary hypertension, severe valvular dysfunction) requiring inpatient management(72) The original [facility] content created by [facility] has been revised. The portions of the content which have been revised are identified through the use of italic text or in bold, and [facility] has neither reviewed nor approved the modified material. All other unmodified content is copyright [facility]. Please see references footnoted in the original [facility] edition 2016 Admission Criteria Met?: Yes LILY MANN Nov 28, 2016 00:46
[2016-11-28] MEDS: IV NORMAL SALINE 1000ML BAG 1,000 ML IV SCH (02:12)
[2016-11-28 03:00] VITALS: BP 122/57
[2016-11-28] MEDS ORDERED: LEVOTHYROXINE 25 MCG TABLET. PO SCH (06:00)
[2016-11-28 06:46] VITALS: BP 136/64
[2016-11-28] MEDS ORDERED: PANTOPRAZOLE 40 MG TABLET.DR. PO SCH (07:30)
--- NOTE | 2016-11-28 07:47 | EKG ---
[facility] [address] [place] [address] Test Date: 2016-11-28 Test Time: 07:33:28 Pat Name: CARYN GUY Department: Room: 244 1 Gender: F Slasher Hand: JORY : 1965 Requested By: GOLD MALDONADO Order Number: [id number] Reading MD: Measurements Intervals [place] Rate: 56 P: 48 ND: 182 QRS: 77 QRSD: 88 T: 109 QT: 430 QTc: 417 Interpretive Statements SINUS RHYTHM QRS(T) CONTOUR ABNORMALITY CONSIDER ANTEROLATERAL INFARCT T ABNORMALITY IN ANTERIOR LEADS ABNORMAL ECG RI6.01 Compared to ECG 11/11/2015 16:06:15 Myocardial infarct finding now present T-wave abnormality now present Atrial abnormality no longer present
[2016-11-28] MEDS ORDERED: SPIRONOLACTONE 25 MG TABLET PO SCH (09:00)
[2016-11-28] MEDS ORDERED: ALPRAZolam 0.5 MG TABLET PO SCH (09:00)
[2016-11-28] MEDS ORDERED: ASPIRIN ENTERIC COATED 325 MG TABLET.DR. PO SCH (09:00)
[2016-11-28] MEDS ORDERED: CLOPIDOGREL BISULFATE 75 MG TABLET PO SCH (09:00)
[2016-11-28 11:00] VITALS: BP 144/83
--- NOTE | 2016-11-28 12:47 | PDOC ---
PROGRESS NOTES Subjective Subjective Ms Avilez did well overnight. She is resting comfortably in bed. She hasn't had any episodes of chest pain or palpitations or shortness of breath. She is able to ambulate to the bathroom without difficulty. Objective Objective Vital Signs Date Time Temp Pulse Resp B/P (MAP) Pulse Ox O2 Delivery O2 Flow Rate FiO2 11/28/16 11:00 98.5 64 18 144/83 (103) 99 Room Air 98.5 11/28/16 03:00 2.0 Intake and Output 11/28/16 07:00 Intake Total 1440 ml Output Total 700 ml Balance 740 ml Intake Oral 440 ml IV Total 1000 ml Output Urine Total 700 ml # Voids 1 Physical Exam Heart: Regular rate (and rhythm), Normal S1, Normal S2 Extremities: Normal pulses (2/4 radial b/l) General: Alert, No acute distress Lungs: Clear to auscultation (b/l), Normal air movement Assessment Assessment Ms Avilez is a 50 yr old female who presented with heart palpitations 1) angina - all testing was negative 2) arrhythmia - as above No indication for heart cath, possible patient had panic attack the night of event. Problems Medical Problems: (1) Chest pain Status: Acute (2) Hypertension Status: Acute Comment Review of Relevant I have reviewed the following items anita (where applicable) has been applied. Labs Laboratory Tests Test 11/27/16 06:30 11/27/16 07:00 11/27/16 07:20 11/27/16 12:21 Bedside Urine HCG, Qualitative Hcg negative (Negative) White Blood Count 6.0 x10^3/uL (4.0-11.0) Red Blood Count 4.27 x10^6/uL (3.50-5.40) Hemoglobin 13.5 g/dL (12.0-15.5) Hematocrit 40.0 % (36.0-47.0) Mean Corpuscular Volume 94 fL (79-100) Mean Corpuscular Hemoglobin 32 pg (25-35) Mean Corpuscular Hemoglobin Concent 34 g/dL (31-37) Red Cell Distribution Width 12.8 % (11.5-14.5) Platelet Count 238 x10^3/uL (140-400) Neutrophils (%) (Auto) 47 % (31-73) Lymphocytes (%) (Auto) 39 % (24-48) Monocytes (%) (Auto) 9 % (0-9) Eosinophils (%) (Auto) 4 % (0-3) Basophils (%) (Auto) 1 % (0-3) Neutrophils # (Auto) 2.8 x10^3uL (1.8-7.7) Lymphocytes # (Auto) 2.3 x10^3/uL (1.0-4.8) Monocytes # (Auto) 0.5 x10^3/uL (0.0-1.1) Eosinophils # (Auto) 0.2 x10^3/uL (0.0-0.7) Basophils # (Auto) 0.1 x10^3/uL (0.0-0.2) Sodium Level 141 mmol/L (136-145) Potassium Level 4.0 mmol/L (3.5-5.1) Chloride Level 106 mmol/L (98-107) Carbon Dioxide Level 24 mmol/L (21-32) Anion Gap 11 (6-14) Blood Urea Nitrogen 12 mg/dL (7-20) Creatinine 1.0 mg/dL (0.6-1.0) Estimated GFR (Cockcroft-Gault) 71.3 Glucose Level 114 mg/dL (70-99) Calcium Level 9.6 mg/dL (8.5-10.1) Magnesium Level 1.9 mg/dL (1.8-2.4) Total Bilirubin 0.4 mg/dL (0.2-1.0) Direct Bilirubin 0.1 mg/dL (0.0-0.2) Aspartate Amino Transf (AST/SGOT) 28 U/L (15-37) Alanine Aminotransferase (ALT/SGPT) 30 U/L (14-59) Alkaline Phosphatase 68 U/L (46-116) Creatine Kinase 265 U/L (26-192) Creatine Kinase MB (Mass) 1.6 ng/mL (0.0-3.6) Creatine Kinase MB Relative Index 0.6 % (0-4) Troponin I Quantitative < 0.017 ng/mL (0.000-0.055) SF-Dra-X-Type Natriuretic Peptide 100 pg/mL (0-124) Total Protein 7.5 g/dL (6.4-8.2) Albumin 3.4 g/dL (3.4-5.0) Lipase 261 U/L (73-393) Thyroid Stimulating Hormone (TSH) 2.267 uIU/mL (0.358-3.74) Urine Collection Type Void Urine Color Yellow Urine Clarity Clear Urine pH 5.0 Urine Specific [place] 1.020 Urine Protein Negative mg/dL (NEG-TRACE) Urine Glucose (UA) Negative mg/dL (NEG) Urine Ketones (Stick) Negative mg/dL (NEG) Urine Blood Negative (NEG) Urine Nitrite Negative (NEG) Urine Bilirubin Negative (NEG) Urine Urobilinogen Dipstick 0.2 mg/dL (0.2 mg/dL) Urine Leukocyte Esterase Negative (NEG) Urine RBC 0 /HPF (0-2) Urine WBC 1-4 /HPF (0-4) Urine Squamous Epithelial Cells Mod /LPF Urine Bacteria Few /HPF (0-FEW) Urine Mucus Marked /LPF Glucose (Fingerstick) 92 mg/dL (70-99) Test 11/27/16 14:35 11/27/16 17:00 11/27/16 20:40 11/27/16 21:33 Troponin I Quantitative < 0.017 ng/mL (0.000-0.055) < 0.017 ng/mL (0.000-0.055) Glucose (Fingerstick) 102 mg/dL (70-99) 129 mg/dL (70-99) Test 11/28/16 08:23 11/28/16 11:20 Glucose (Fingerstick) 100 mg/dL (70-99) 93 mg/dL (70-99) Laboratory Tests Test 11/27/16 14:35 11/27/16 17:00 11/27/16 20:40 11/27/16 21:33 Troponin I Quantitative < 0.017 ng/mL (0.000-0.055) < 0.017 ng/mL (0.000-0.055) Glucose (Fingerstick) 102 mg/dL (70-99) 129 mg/dL (70-99) Test 11/28/16 08:23 11/28/16 11:20 Glucose (Fingerstick) 100 mg/dL (70-99) 93 mg/dL (70-99) Medications Current Medications Aspirin (Children'S Aspirin) 324 mg 1X ONCE PO ; Start 11/27/16 at 07:15; Stop 11/27/16 at 07:16; Status DC Sodium Chloride 1,000 ml @ 1,000 mls/hr Q1H IV Last administered on 11/27/16 07:37; Start 11/27/16 at 07:15; Stop 11/27/16 at 08:14; Status DC Sodium Chloride (Normal Saline Flush) 10 ml QSHIFT PRN IV AFTER MEDS AND BLOOD DRAWS; Start 11/27/16 at 07:00 Ondansetron HCl (Zofran) 4 mg PRN Q8HRS PRN IV NAUSEA/VOMITING; Start 11/27/16 at 08:30; Stop 11/28/16 at 08:29; Status DC Sodium Chloride 1,000 ml @ 100 mls/hr Q10H IV Last administered on 11/28/16 02:12; Start 11/27/16 at 08:25; Stop 11/28/16 at 08:24; Status DC Alprazolam (Xanax) 0.5 mg BID PO Last administered on 11/28/16 08:19; Start at 09:00 Aspirin (Ecotrin) 325 mg DAILY PO Last administered on 11/28/16 08:19; Start 11/28/16 at 09:00 Clopidogrel Bisulfate (Plavix) 75 mg DAILY PO Last administered on 11/28/16 08 :19; Start 11/28/16 at 09:00 Levothyroxine Sodium (Synthroid) 100 mcg DAILY06 PO Last administered on 06:26; Start 11/28/16 at 06:00; Stop 11/28/16 at 10:31; Status DC Pantoprazole Sodium (Protonix) 40 mg DAILYAC PO Last administered on 11/28/16 06:26; Start 11/28/16 at 07:30 Simvastatin (Zocor) 20 mg HS PO ; Start 11/28/16 at 21:00 Spironolactone (Aldactone) 25 mg DAILY PO Last administered on 11/28/16 08:19 ; Start 11/28/16 at 09:00 Simvastatin (Zocor) 20 mg 1X ONCE PO Last administered on 11/27/16 23:03; Start 11/27/16 at 23:00; Stop 11/27/16 at 23:01; Status DC Alprazolam (Xanax) 0.5 mg 1X ONCE PO Last administered on 11/27/16t 23:03; Start 11/27/16 at 23:00; Stop 11/27/16 at 23:01; Status DC Levothyroxine Sodium (Synthroid) 100 mcg DAILY07 PO ; Start 11/29/16 at 07:00 Active Scripts Active Reported Pantoprazole Sodium 40 Mg Tablet.dr 40 Mg PO DAILY Clopidogrel (Clopidogrel Bisulfate) 75 Mg Tablet 75 Mg PO DAILY Aspirin Ec (Aspirin) 325 Mg Tablet.dr 325 Mg PO DAILY Alprazolam 0.5 Mg Tablet 0.5 Mg PO BID Simvastatin 5 Mg Tablet 20 Mg PO HS Levothyroxine Sodium 25 Mcg Tablet 100 Mcg PO DAILY Spironolactone 25 Mg Tablet 25 Mg PO DAILY Vitals/I & O Vital Sign - Last 24 Hours 11/27/16 11/27/16 11/27/16 11/27/16 15:00 19:05 19:05 23:09 Temp 97.8 97.8 97.9 97.8 97.8 97.9 Pulse 64 53 61 Resp 18 B/P (MAP) 127/44 (71) 110/68 (82) 120/30 (60) Pulse Ox 98 92 97 O2 Delivery Room Air Room Air Room Air Nasal Cannula O2 Flow Rate 2.0 11/28/16 11/28/16 11/28/16 11/28/16 03:00 06:46 07:19 11:00 Temp 97.8 97.6 98.5 97.8 97.6 98.5 Pulse 57 60 64 Resp 18 B/P (MAP) 122/57 (78) 136/64 (88) 144/83 (103) Pulse Ox 100 95 99 O2 Delivery Nasal Cannula Room Air Room Air Room Air O2 Flow Rate 2.0 Intake and Output 11/27/16 11/27/16 11/28/16 15:00 23:00 07:00 Intake Total 1000 ml 240 ml 200 ml Output Total 400 ml 300 ml Balance 1000 ml -160 ml -100 ml GOLD MALDONADO MD Nov 28, 2016 12:47
[2016-11-28 15:00] VITALS: BP 171/80
--- NOTE | 2016-11-28 17:21 | PDOC3 ---
Discharge Summary* Date of Admission: Nov 27, 2016 Date of Discharge: Nov 28, 2016 Admitting Diagnosis Problems Medical Problems: (1) Chest pain Status: Acute (2) Hypertension Status: Acute Problems: Final Diagnosis Problems Medical Problems: (1) Chest pain Status: Acute (2) Hypertension Status: Acute Brief Hospital Course This pt is a very pleasant 50-year-old lady that has a known history of coronary artery disease and previous bypass surgery. She is obese and has been under a lot of stress both at work and due to to some family problems. The patient was very stressed out and had an episode of chest tightness and dyspnea that brought her to the ER where she was seen and evaluated and he was decided to admit her for further evaluation. After the patient came in serial EKGs were done that did not show any changes. Serial enzymes were done that were negative. An echocardiogram was done and this showed no changes in the left ventricular function. After all this was evaluated I discussed the situation and options with the patient and her . It was decided then to discharge the patient home and in my opinion her problem is more of an anxiety issue rather than actual angina. Doing a stress tests on her has not been of any accuracy in the past since she had essentially a normal MPI and yet she had very significant coronary artery disease therefore I do not think that doing another MPI is cannot be helpful. If the patient has any further problems we will bring her back and do a heart catheterization. The patient and her both agree with this approach. I will see her as an outpatient in my office in about 3 weeks. The follow-up, activity, diet, medications, as well as her condition have been discussed and they agree with the present plan. See the MRAD for the list of medications. Patient to be discharged today in stable condition CONDITION AT DISCHARGE: Improved Scheduled Alprazolam (Alprazolam), 0.5 MG PO BID, (Reported) Aspirin (Aspirin Ec), 325 MG PO DAILY, (Reported) Clopidogrel Bisulfate (Clopidogrel), 75 MG PO DAILY, (Reported) Levothyroxine Sodium (Levothyroxine Sodium), 100 MCG PO DAILY, (Reported) Pantoprazole Sodium (Pantoprazole Sodium), 40 MG PO DAILY, (Reported) Simvastatin (Simvastatin), 20 MG PO HS, (Reported) Spironolactone (Spironolactone), 25 MG PO DAILY, (Reported) Time Spent Total time spent with patient [] minutes for coordination of care, counseling, and education. GOLD MALDONADO MD Nov 28, 2016 17:21
[2016-11-28] MEDS ORDERED: SIMVASTATIN 20 MG TABLET PO SCH (21:00)
[2016-11-29] MEDS ORDERED: LEVOTHYROXINE 100 MCG TABLET PO SCH (07:00)
== END 2016-11-28 16:15 | disposition home or self-care (01) ==
LOC: ER 06:47 → INTOOBSV 08:24 → ED HOLD 08:24 → 2 SOUTH 11:30
PROVIDERS: ADMIT Internal Medicine Cardiovascular Disease; ATTEND Internal Medicine Cardiovascular Disease
DX: I25.119 Atherosclerotic heart disease of native coronary artery with unspecified angina pectoris (principal); I49.9 Cardiac arrhythmia, unspecified; I25.2 Old myocardial infarction; E78.5 Hyperlipidemia, unspecified; F41.9 Anxiety disorder, unspecified; E03.9 Hypothyroidism, unspecified; J45.909 Unspecified asthma, uncomplicated; E78.00 Pure hypercholesterolemia, unspecified; I10 Essential (primary) hypertension; G47.30 Sleep apnea, unspecified; E66.01 Morbid (severe) obesity due to excess calories; Z68.43 Body mass index [BMI] 50.0-59.9, adult; Z79.02 Long term (current) use of antithrombotics/antiplatelets; Z87.891 Personal history of nicotine dependence; Z95.1 Presence of aortocoronary bypass graft; Z90.49 Acquired absence of other specified parts of digestive tract; Z90.710 Acquired absence of both cervix and uterus; Z95.5 Presence of coronary angioplasty implant and graft; Z83.3 Family history of diabetes mellitus; Z82.49 Family history of ischemic heart disease and other diseases of the circulatory system; Z80.9 Family history of malignant neoplasm, unspecified
CPT/HCPCS: 36415; 71020; 80048; 80076; 81001; 81025; 82553; 82962; 83690; 83735; 83880; 84443; 84484; 85027; 93005; 93306; 96360; 96361; 99285; G0378; J7030; G0379

== ENCOUNTER → 2017-02-16 | Outpatient (CLI) | payer OTHER ==
[~2017-02-16] MED LIST changes: +METF500T4 PO; +METO-239 PO; -METO25TA9 PO
== END ==
LOC: SURGPAT 14:17
PROVIDERS: ATTEND Obstetrics & Gynecology
DX: Z01.818 Encounter for other preprocedural examination (principal)

== ENCOUNTER 2017-02-22 06:49 | Day surgery (SDC) | payer OTHER ==
[2017-02-22] MEDS ORDERED: PROCHLORPERAZINE 10 MG/2 ML VIAL. IV PRN (07:00)
[2017-02-22] MEDS ORDERED: HYDROmorphone 2 MG/ML VIAL IV PRN (07:00)
[2017-02-22] MEDS ORDERED: ONDANSETRON PF 4 MG/2 ML VIAL. IV PRN (07:00)
[2017-02-22] MEDS ORDERED: LIDOCAINE 1% PF 2 ML VIAL. ID PRN (07:00)
[2017-02-22] MEDS ORDERED: MORPHINE SULFATE 2 MG/ML DISP.SYRIN. IV PRN (07:00)
[2017-02-22] MEDS ORDERED: fentaNYL PF VIAL 100 MCG/2 ML VIAL IV PRN ×2 (07:00)
[2017-02-22] MEDS ORDERED: IV RINGERS,LACTATED 1000ML 1,000 ML IV SCH (07:00)
[2017-02-22] MEDS ORDERED: HEPARIN PF for SUB-Q USE 5,000 UNIT/0.5 ML VIAL. SQ ONE (07:45)
[2017-02-22] MEDS ORDERED: ROCURONIUM 100 MG/10 ML VIAL. ONE (08:03)
[2017-02-22] MEDS ORDERED: MIDAZOLAM HCL/PF 2 MG/2 ML VIAL. ONE (08:03)
[2017-02-22] MEDS ORDERED: SUCCINYLCHOLINE 200 MG/10 ML VIAL. ONE (08:03)
[2017-02-22] MEDS ORDERED: PROPOFOL 20 ML IV ONE (08:03)
[2017-02-22] MEDS ORDERED: LIDOCAINE 2% PF Vial for OR 5 ML VIAL. ONE (08:03)
[2017-02-22] MEDS ORDERED: fentaNYL PF VIAL 100 MCG/2 ML VIAL ONE (08:03)
[2017-02-22] MEDS ORDERED: NEOMY/BACITR/POLYMYXIN OINT PACKET. TP ONE (08:07)
[2017-02-22] MEDS ORDERED: PHENYLEPHRINE in 0.9% NACL PF 1 MG/10 ML DISP.SYRIN. IV ONE (09:03)
--- NOTE | 2017-02-22 09:21 | PDOC ---
BRIEF OPERATIVE NOTE Date: Feb 22, 2017 Pre-Op Diagnosis endometrial thickening; postmenopausal bleeding Post-Op Diagnosis same Procedure Performed h/s with d/c Surgeon Teresa Buffing Wheel Inspector none Anesthesiologist Arben Anesthesia Type: MAC Blood Loss <10cc IV Fluid see anesthesia report Urine Output see anesthesia report Specimens Obtained uterine curettings Findings thickened endometrium Complications none ETHAN GILLESPIE MD Feb 22, 2017 09:21
--- NOTE | 2017-02-22 09:22 | DISCH ---
DISCHARGE INSTRUCTIONS Condition on Discharge Condition on Discharge: Stable Activity After Discharge Activity Instructions for Disc: No restrictions, Activity as tolerated, Progressive ambulation Exercise Instruction after Dis: Progress as tolerated Driving Instructions after Dis: Do not drive today Weight Bearing Status after Di: Full weight bearing Diet after Discharge Diet after Discharge: Regular Wound Incision Care Wound/Incision Care: No wound care needed (pt may shower and may bathe) Contacting the DR. after DC Call your doctor for: If your condition worsens Follow-Up Follow up with: Dr. Gillespie in 1 week ETHAN GILLESPIE MD Feb 22, 2017 09:22
--- NOTE | 2017-02-22 09:42 | OP ---
DATE OF SURGERY: 02/22/2017 PREOPERATIVE DIAGNOSIS: Endometrial thickening and postmenopausal bleeding. POSTOPERATIVE DIAGNOSIS: Endometrial thickening and postmenopausal bleeding. PROCEDURE: Hysteroscopy with dilation and curettage. SURGEON: Rose Gillespie MD ANESTHESIA TYPE: MAC. ESTIMATED BLOOD LOSS: Less than 10 mL. SPECIMENS: Uterine curettings. COMPLICATIONS: None. DESCRIPTION OF PROCEDURE: After informed consent was obtained, the patient was taken to the operating room, given a smooth induction of anesthesia without complications. Her perineum and vagina were prepped and draped in the usual sterile fashion. Her legs were placed in Ridge stirrups. A bivalve speculum was placed in the vagina and the anterior lip of the cervix was grasped with a single tooth tenaculum. The cervix was dilated to accommodate the hysteroscope. Hysteroscopy revealed lots of polypoid-looking endometrial tissue. There were a couple areas that looked like just benign polyps, but some of the other areas were a little bit more vascular and irregularly shaped. We did see the top of the fundus, which appeared atrophic and normal. Most of the abnormality was within the mid to lower uterine segment. D and C was then performed productive of a large amount of tissue, which was all sent to the lab. At this point, the procedure was terminated. The tenaculum was removed from the cervix and the speculum was removed from the vagina. The patient did not have any significant bleeding. She did receive 5000 units subcutaneous of heparin prior to the procedure for prophylaxis due to her history of anticoagulation before surgery. ROSE GILLESPIE MD DR: WHITLEY/smooth JOB#: [id number] / [id number]
[2017-02-22 10:13] VITALS: BP 133/63
--- NOTE | 2017-02-23 15:59 | PATHOLOGY ---
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 See comment. (SHA:davina; 02/23/2017) COMMENT: This case was also reviewed by Dr. Saul Coello. This case was also discussed with Dr. Rose Moore on 02/23/2017, at 2:00 p.m. REPORT ELECTRONICALLY SIGNED BY: Raza Hernandez M.D. DATE/TIME: 02/23/2017 15:58 * * * * * * * * GROSS PATHOLOGY: Received in formalin labeled "Caryn Guy, endometrial curettings," are several segments of red-ponce membranous tissue admixed with mucoid material measuring 8.4 x 5.6 x 2.7 cm in aggregate dimensions. The specimen is submitted entirely in cassette A1 through A 11. (TSD; 02/22/2017) INITIAL CPT CODE(S): A; 48823 Professional services performed by [facility] [place] [address] Technical services performed by [facility] at [address] [place] [address]. SPECIMEN(S) RECEIVED: A.Endometrial curettings CLINICAL HISTORY: Thickened endometrium, endometrial hyperplasia PATIENT: CARYN GUY /AGE: 8 1965 (Age: 51) PATIENT #: [id number] ALT CASE #: SPECIMEN COLLECTION DATE: 02/22/2017 SPECIMEN RECEIVED DATE: 02/22/2017 [facility] - [address] [place] [address] - PHONE: [phone] * * * END OF REPORT * * *
== END 2017-02-22 10:45 | disposition home or self-care (01) ==
LOC: SURG 06:49
PROVIDERS: ATTEND Obstetrics & Gynecology
DX: C38.0 Malignant neoplasm of heart (principal); N95.0 Postmenopausal bleeding; Z95.1 Presence of aortocoronary bypass graft; E78.00 Pure hypercholesterolemia, unspecified; J45.909 Unspecified asthma, uncomplicated; K21.9 Gastro-esophageal reflux disease without esophagitis; M17.11 Unilateral primary osteoarthritis, right knee; E03.9 Hypothyroidism, unspecified; E16.2 Hypoglycemia, unspecified; F41.9 Anxiety disorder, unspecified; D64.9 Anemia, unspecified; Z90.49 Acquired absence of other specified parts of digestive tract; Z98.51 Tubal ligation status; Z86.39 Personal history of other endocrine, nutritional and metabolic disease; Z87.891 Personal history of nicotine dependence; Z72.0 Tobacco use; Z88.8 Allergy status to other drugs, medicaments and biological substances
CPT/HCPCS: 58558; 82962; 88305; J0330; J2250; J2370; J2704; J3010; J7120; J2001

== ENCOUNTER → 2017-03-02 | Outpatient (CLI) | payer OTHER ==
[2017-02-22 10:13] VITALS: BP 133/63
[~2017-03-02] MED LIST changes: +CONTRAST GIVEN MC PRN; +IOHEXOL 240 MG/ML 50ML VIAL. PO ONE; +IOHEXOL 300 MG/ML 100ML VIAL. IV ONE
--- NOTE | 2017-03-02 13:48 | KCIC ---
EXAM: Chest, 2 views. HISTORY: Endometrial carcinoma. COMPARISON: 06/16/2014 FINDINGS: Frontal and lateral views of the chest are obtained. There is no infiltrate, effusion or pneumothorax. The heart is normal in size. There are median sternotomy changes. No nodule is seen. IMPRESSION: No acute pulmonary finding. Electronically signed by: Lizette Vargas MD (03/02/2017 1:45 PM) [place] [id number]
--- NOTE | 2017-03-02 15:03 | KCIC ---
Indication: Newly diagnosed endometrial carcinoma. Prior appendectomy, cholecystectomy. Vaginal bleeding. Technique: Axial images and coronal and sagittal reformatted images are provided. Oral contrast and 100 mL of intravenous Omnipaque 300 was administered without complication. No comparison is available. One or more of the following individualized dose reduction techniques were utilized for this examination: 1. Automated exposure control 2. Adjustment of the mA and/or kV according to patient size 3. Use of iterative reconstruction technique Findings: The lung bases are clear. There is no pleural effusion. The heart is not enlarged. There is fatty infiltration of the liver without discrete lesion. Gallbladder is absent. Spleen is not enlarged. The pancreas and the adrenals are unremarkable. Aorta is normal caliber. There is minimal atheromatous disease at the bifurcation. Atheromatous disease within the iliac arteries is noted as well, mild. Kidneys are symmetrically perfused without discrete lesion. There is no urolithiasis. There is no small bowel obstruction or mural thickening. The colon is unremarkable. There is no mesenteric or retroperitoneal adenopathy. There is no evidence of and peritoneal carcinomatosis. There is a small fat-containing umbilical hernia without incarceration. Portions of this patient's subcutaneous tissues cannot be included in the [id number]-czhf. Bladder is unremarkable. Uterus measures 10.7 x 6.1 x 7.2 cm in size. There is no adnexal mass. Bladder is unremarkable. There is no free pelvic fluid. There is no pelvic adenopathy. There is no inguinal adenopathy. There are degenerative changes in the spine. There is anterolisthesis at L5-S1 secondary to bilateral L5 pars defects. IMPRESSION: 1. No evidence of metastatic disease. 2. Fatty infiltration of the liver. 3. Prior appendectomy and cholecystectomy. Electronically signed by: Robinson Bliss MD (03/02/2017 2:59 PM) [facility]
== END | disposition home or self-care (01) ==
LOC: KCIC CT 12:50
PROVIDERS: ATTEND Obstetrics & Gynecology Gynecologic Oncology
DX: C54.1 Malignant neoplasm of endometrium (principal); K76.0 Fatty (change of) liver, not elsewhere classified; N93.9 Abnormal uterine and vaginal bleeding, unspecified; Z90.49 Acquired absence of other specified parts of digestive tract
CPT/HCPCS: 71020; 74177; 82565; Q9966; Q9967

== ENCOUNTER → 2017-10-31 | Outpatient (CLI) | payer OTHER | END | disposition home or self-care (01) | LOC: KCIC 15:05 | DX: M25.562 Pain in left knee (principal) | CPT/HCPCS: 73562 ==

== ENCOUNTER → 2018-08-12 | Outpatient (CLI) | payer OTHER ==
[~2018-08-12] MED LIST changes: -CONTRAST GIVEN MC PRN; -IOHEXOL 240 MG/ML 50ML VIAL. PO ONE; -IOHEXOL 300 MG/ML 100ML VIAL. IV ONE; +METF500T16 PO; -METF500T4 PO; +SIMV5TAB14 PO; -SIMV5TAB5 PO; -SPIR25TA3 PO; +SPIR25TA5 PO
--- NOTE | 2018-08-12 10:04 | CARD ---
MR#: [id number] Date of Study: 08/12/2018 Ordering Physician: ÓSCAR HUSSEIN, Referring Physician: ÓSCAR HUSSEIN, Tech: Jayde Sandy [employer] APPROVED REPORT EXAM: Two-dimensional and M-mode echocardiogram with Doppler and color Doppler. Other Information Quality : Good INDICATION Cardiac Disease: CAD Surgery/Intervention CABG: Date: 2009 2D DIMENSIONS RVDd2.7 (2.9-3.5cm)Left Atrium(2D)4.6 (1.6-4.0cm) IVSd0.8 (0.7-1.1cm)Aortic Root(2D)2.7 (2.0-3.7cm) LVDd5.8 (3.9-5.9cm)LVOT Diameter2.2 (1.8-2.4cm) PWd0.8 (0.7-1.1cm)LVDs3.8 (2.5-4.0cm) FS (%) 33.9 %SV103.7 ml LVEF(%)62.0 (>50%) Aortic Valve AoV Peak Isaias.129.3cm/sAoV VTI25.5cm AO Peak GR.6.7mmHgLVOT Peak Isaias.113.0cm/s AO Mean GR.3mmHgAVA (VMAX)3.24cm2 SHARYN (VTI)3.40cm2 Mitral Valve MV E Cskglaoq76.0cm/sMV DECEL SHRA813zm MV A Vrmuyzfy12.3cm/sE/A Ratio1.2 Tricuspid Valve TR P. Tsvilhau197ic/sRAP BCWWCOEO1tcFr TR Peak Gr.84wkArNWYB52feSq Pulmonary Vein S1 Vsanfoxi77.0cm/sD2 Sidfhrtq10.4cm/s LEFT VENTRICLE The left ventricle is normal size. There is normal left ventricular wall thickness. The left ventricu lar systolic function is normal and the ejection fraction is within normal range. The Ejection Fracti on is 55-60%. There is normal LV segmental wall motion. Septal motion consistent with conduction abno rmality. Transmitral Doppler flow pattern is Grade II-pseudonormal filling dynamics. RIGHT VENTRICLE The right ventricle is normal size. The right ventricular systolic function is normal. ATRIA The left atrium is mildly dilated. The right atrium size is normal. The interatrial septum is intact with no evidence for an atrial septal defect or patent foramen ovale as noted on 2-D or Doppler imagi ng. AORTIC VALVE The aortic valve is normal in structure and function. Doppler and Color Flow revealed no significant aortic regurgitation. There is no significant aortic valvular stenosis. MITRAL VALVE The mitral valve is normal in structure and function. There is no evidence of mitral valve prolapse. There is no mitral valve stenosis. Doppler and Color-flow revealed trace mitral regurgitation. TRICUSPID VALVE The tricuspid valve is normal in structure and function. Doppler and Color Flow revealed trace tricus pid regurgitation.There is mild pulmonary hypertension.The PA pressure was estimated at 39 mmHg. Ther e is no tricuspid valve stenosis. PULMONIC VALVE The pulmonic valve is not well visualized. Doppler and Color Flow revealed trace pulmonic valvular re gurgitation. There is no pulmonic valvular stenosis. GREAT VESSELS The aortic root is normal in size. The ascending aorta is normal in size. The IVC is normal in size a nd collapses >50% with inspiration. PERICARDIAL EFFUSION There is no evidence of significant pericardial effusion. Critical Notification Critical Value: No <Conclusion> The left ventricular systolic function is normal and the ejection fraction is within normal range. Th e Ejection Fraction is 55-60%. There is normal LV segmental wall motion. Septal motion consistent with conduction abnormality. Doppler and Color Flow revealed trace tricuspid regurgitation.There is mild pulmonary hypertension.Th e PA pressure was estimated at 39 mmHg. Signed by : Óscar Hussein, Electronically Approved : 08/12/2018 10:04:14
== END | disposition home or self-care (01) ==
LOC: ECHO 08:53
PROVIDERS: ATTEND Internal Medicine Cardiovascular Disease
DX: I27.20 Pulmonary hypertension, unspecified (principal); I25.10 Atherosclerotic heart disease of native coronary artery without angina pectoris
CPT/HCPCS: 93306

== ENCOUNTER → 2018-08-12 | Outpatient (CLI) | payer OTHER ==
--- NOTE | 2018-08-12 13:48 | KCIC ---
Bilateral digital screening mammograms: Reason for examination: Routine screening. Comparison is made to previous study dated 01/26/2014. Interpretation is made with the benefit of CAD. The skin and nipples show no abnormalities. No abnormal lymph nodes are seen. The breast parenchyma is predominantly fatty. (Breast density: Category A.) There are no dominant masses, suspicious calcifications or architectural distortions. Impression: No evidence of malignancy. Recommend routine screening. BI-RADS Category 1: Negative. "Our facility is accredited by the [employer] Mammography Program." This patient's information has been entered into a reminder system for the patient to be notified with the results of her examination and a target date for the next mammogram. Electronically signed by: Sofia Carballo MD (08/12/2018 1:45 PM) [facility]
== END | disposition home or self-care (01) ==
LOC: KCIC MAMMO 12:24
PROVIDERS: ATTEND Nurse Practitioner Family
DX: Z12.31 Encounter for screening mammogram for malignant neoplasm of breast (principal)
CPT/HCPCS: 77067

== ENCOUNTER 2019-01-15 15:39 | Inpatient (IN) | payer OTHER ==
[~2019-01-15] VITALS: Ht 170.2 cm; Wt 190.1 kg
[~2019-01-15 15:39] MED LIST changes: -PANT40TA5 PO; +PANT40TA77 PO
--- NOTE | 2019-01-15 16:16 | PHYS DOC ---
Past Medical History Past Medical History: Asthma, CAD, High Cholesterol, Hypothyroid, UT Additional Past Medical Histor: Esophageal bleed, Cardiac Stents x2. (ANTHONY SAGASTUME APRN) Past Surgical History: Cholecystectomy, Coronary Bypass Surgery, , Hysterectomy (ANTHONY SAGASTUME APRN) Alcohol Use: None Drug Use: None (ANTHONY SAGASTUME APRN) Adult General Chief Complaint Chief Complaint: DIZZY/LIGHT HEADED HPI HPI Patient is a 53 year old female who presents since she came flushed at 3 PM and hot and overheated and started not feeling right. The patient states that she also has been having chest pain or last 3 days intermittently. The patient has a history of a UT. The patient sees Dr. Turner. Denies any pain at this time. (ANTHONY SAGASTUME APRN) Review of Systems Review of Systems Constitutional: Denies fever or chills. Reports flushing. Eyes: Denies change in visual acuity, redness, or eye pain [] HENT: Denies nasal congestion or sore throat [] Respiratory: Denies cough or shortness of breath [] Cardiovascular: No additional information not addressed in HPI [] GI: Denies abdominal pain, nausea, vomiting, bloody stools or diarrhea [] : Denies dysuria or hematuria [] Musculoskeletal: Denies back pain or joint pain [] Integument: Denies rash or skin lesions [] Neurologic: Denies headache, focal weakness or sensory changes [] Endocrine: Denies polyuria or polydipsia [] Complete systems were reviewed and found to be within normal limits, except as documented in this note. (ANTHONY SAGASTUME APRN) Current Medications Current Medications Current Medications Medications (Trade) Dose Ordered Sig/Harsha Start Time Stop Time Status Last Admin Dose Admin Aspirin (Children'S Aspirin) 243 mg 1X ONCE 01/15/19 16:30 01/15/19 16:31 DC 01/15/19 16:30 243 MG Morphine Sulfate (Morphine Sulfate) 2 mg PRN Q2HR PRN 01/15/19 17:45 01/16/19 17:44 Ondansetron HCl (Zofran) 4 mg PRN Q8HRS PRN 01/15/19 17:45 01/16/19 17:44 (ANTHONY PAULA DO) Allergies Allergies Allergies Coded Allergies Type Severity Reaction Last Updated Verified diazepam Allergy Severe Hives/shortness of breath/increased anxiety 02/22/17 Yes lidocaine Adverse Reaction Mild "BRUISES ME IMMEDIATELY" 01/15/19 Yes (ANTHONY PAULA DO) Physical Exam Physical Exam Constitutional: Well developed, well nourished, no acute distress, non-toxic elinor earance. [] HENT: Normocephalic, atraumatic, bilateral external ears normal, oropharynx moist, no oral exudates, nose normal. [] Eyes: PERRLA, EOMI, conjunctiva normal, no discharge. [] Neck: Normal range of motion, no tenderness, supple, no stridor. [] Cardiovascular:Heart rate regular rhythm, no murmur [] Lungs & Thorax: Bilateral breath sounds clear to auscultation [] Abdomen: Bowel sounds normal, soft, no tenderness, no masses, no pulsatile masses. [] Skin: Warm, dry, no erythema, no rash. [] Back: No tenderness, no CVA tenderness. [] Extremities: No tenderness, no cyanosis, no clubbing, ROM intact, no edema. [] Neurologic: Alert and oriented X 3, normal motor function, normal sensory function, no focal deficits noted. [] Psychologic: Affect normal, judgement normal, mood normal. [] (ANTHONY SAGASTUME APRN) Current Patient Data Vital Signs Vital Signs Date Time Temp Pulse Resp B/P (MAP) Pulse Ox O2 Delivery O2 Flow Rate FiO2 01/15/19 17:25 69 18 99 01/15/19 15:52 97.6 134/81 (98) Room Air 97.6 (ANTHONY PAULA DO) Lab Values Laboratory Tests Test 01/15/19 16:13 01/15/19 17:23 01/15/19 18:28 White Blood Count 7.3 x10^3/uL (4.0-11.0) Red Blood Count 4.40 x10^6/uL (3.50-5.40) Hemoglobin 14.1 g/dL (12.0-15.5) Hematocrit 40.7 % (36.0-47.0) Mean Corpuscular Volume 93 fL (79-100) Mean Corpuscular Hemoglobin 32 pg (25-35) Mean Corpuscular Hemoglobin Concent 35 g/dL (31-37) Red Cell Distribution Width 13.4 % (11.5-14.5) Platelet Count 256 x10^3/uL (140-400) Neutrophils (%) (Auto) 45 % (31-73) Lymphocytes (%) (Auto) 41 % (24-48) Monocytes (%) (Auto) 10 % (0-9) H Eosinophils (%) (Auto) 4 % (0-3) H Basophils (%) (Auto) 1 % (0-3) Neutrophils # (Auto) 3.3 x10^3/uL (1.8-7.7) Lymphocytes # (Auto) 3.0 x10^3/uL (1.0-4.8) Monocytes # (Auto) 0.7 x10^3/uL (0.0-1.1) Eosinophils # (Auto) 0.3 x10^3/uL (0.0-0.7) Basophils # (Auto) 0.0 x10^3/uL (0.0-0.2) Prothrombin Time 13.2 SEC (11.7-14.0) Prothrombin Time INR 1.0 (0.8-1.1) Activated Partial Thromboplast Time 32 SEC (24-38) D-Dimer (Tejal) 0.41 ug/mlFEU (0.00-0.50) Sodium Level 141 mmol/L (136-145) Potassium Level 3.9 mmol/L (3.5-5.1) Chloride Level 105 mmol/L (98-107) Carbon Dioxide Level 30 mmol/L (21-32) Anion Gap 6 (6-14) Blood Urea Nitrogen 14 mg/dL (7-20) Creatinine 1.2 mg/dL (0.6-1.0) H Estimated GFR (Cockcroft-Gault) 47.2 BUN/Creatinine Ratio 12 (6-20) Glucose Level 116 mg/dL (70-99) H Calcium Level 9.4 mg/dL (8.5-10.1) Total Bilirubin 0.3 mg/dL (0.2-1.0) Aspartate Amino Transferase (AST) 25 U/L (15-37) Alanine Aminotransferase (ALT) 29 U/L (14-59) Alkaline Phosphatase 72 U/L (46-116) Troponin I Quantitative < 0.017 ng/mL (0.000-0.055) Total Protein 8.1 g/dL (6.4-8.2) Albumin 3.7 g/dL (3.4-5.0) Albumin/Globulin Ratio 0.8 (1.0-1.7) L Thyroid Stimulating Hormone (TSH) 1.879 uIU/mL (0.358-3.74) Urine Collection Type Unknown Urine Color Yellow Urine Clarity Cloudy Urine pH 5.0 Urine Specific [place] 1.015 Urine Protein Negative mg/dL (NEG-TRACE) Urine Glucose (UA) Negative mg/dL (NEG) Urine Ketones (Stick) Negative mg/dL (NEG) Urine Blood Negative (NEG) Urine Nitrite Negative (NEG) Urine Bilirubin Negative (NEG) Urine Urobilinogen Dipstick 0.2 mg/dL (0.2 mg/dL) Urine Leukocyte Esterase Small (NEG) Urine RBC 0 /HPF (0-2) Urine WBC 5-10 /HPF (0-4) Urine Squamous Epithelial Cells Mod /LPF Urine Bacteria Few /HPF (0-FEW) Urine Mucus Mod /LPF Glucose (Fingerstick) 97 mg/dL (70-99) Laboratory Tests 01/15/19 16:13 Laboratory Tests 01/15/19 16:13 (ANTHONY PAULA DO) Lab Values Laboratory Tests Test 01/15/19 16:13 White Blood Count 7.3 x10^3/uL (4.0-11.0) Red Blood Count 4.40 x10^6/uL (3.50-5.40) Hemoglobin 14.1 g/dL (12.0-15.5) Hematocrit 40.7 % (36.0-47.0) Mean Corpuscular Volume 93 fL (79-100) Mean Corpuscular Hemoglobin 32 pg (25-35) Mean Corpuscular Hemoglobin Concent 35 g/dL (31-37) Red Cell Distribution Width 13.4 % (11.5-14.5) Platelet Count 256 x10^3/uL (140-400) Neutrophils (%) (Auto) 45 % (31-73) Lymphocytes (%) (Auto) 41 % (24-48) Monocytes (%) (Auto) 10 % (0-9) H Eosinophils (%) (Auto) 4 % (0-3) H Basophils (%) (Auto) 1 % (0-3) Neutrophils # (Auto) 3.3 x10^3/uL (1.8-7.7) Lymphocytes # (Auto) 3.0 x10^3/uL (1.0-4.8) Monocytes # (Auto) 0.7 x10^3/uL (0.0-1.1) Eosinophils # (Auto) 0.3 x10^3/uL (0.0-0.7) Basophils # (Auto) 0.0 x10^3/uL (0.0-0.2) Prothrombin Time 13.2 SEC (11.7-14.0) Prothrombin Time INR 1.0 (0.8-1.1) Activated Partial Thromboplast Time 32 SEC (24-38) D-Dimer (Tejal) 0.41 ug/mlFEU (0.00-0.50) Sodium Level 141 mmol/L (136-145) Potassium Level 3.9 mmol/L (3.5-5.1) Chloride Level 105 mmol/L (98-107) Carbon Dioxide Level 30 mmol/L (21-32) Anion Gap 6 (6-14) Blood Urea Nitrogen 14 mg/dL (7-20) Creatinine 1.2 mg/dL (0.6-1.0) H Estimated GFR (Cockcroft-Gault) 47.2 BUN/Creatinine Ratio 12 (6-20) Glucose Level 116 mg/dL (70-99) H Calcium Level 9.4 mg/dL (8.5-10.1) Total Bilirubin 0.3 mg/dL (0.2-1.0) Aspartate Amino Transferase (AST) 25 U/L (15-37) Alanine Aminotransferase (ALT) 29 U/L (14-59) Alkaline Phosphatase 72 U/L (46-116) Troponin I Quantitative < 0.017 ng/mL (0.000-0.055) Total Protein 8.1 g/dL (6.4-8.2) Albumin 3.7 g/dL (3.4-5.0) Albumin/Globulin Ratio 0.8 (1.0-1.7) L Thyroid Stimulating Hormone (TSH) 1.879 uIU/mL (0.358-3.74) Laboratory Tests 01/15/19 16:13 Laboratory Tests 01/15/19 16:13 (ANTHONY SAGASTUME APRN) EKG EKG Interpreted by Dr. Paula Sinus with rate of 74. T abnormality in high lateral leads. No STEMI.[] (ANTHONY SAGASTUME APRN) Radiology/Procedures Radiology/Procedures [][facility] [address] [place] [address] IMAGING REPORT Signed PATIENT: CARYN GUY GACCOUNT: [id number] : 1965 LOCATION: ER AGE: 53 SEX: F EXAM STATUS: REG ER ORD. PHYSICIAN: ANTHONY SAGASTUME APRN REASON: Left side chest pain PROCEDURE: CHEST PA & LATERAL CHEST PA LATERAL History: Left-sided chest pain. Comparison: March 02, 2017 Findings: No consolidation or pleural effusion. Normal heart size. Prior median sternotomy. Impression: 1. No acute cardiopulmonary process. Electronically signed by: Messi Blanco DO (01/15/2019 4:57 PM) [facility] DICTATED and SIGNED BY: MESSI BLANCO DO DATE: 01/15/191656 (ANTHONY SAGASTUME APRN) Course & Med Decision Making Course & Med Decision Making Pertinent Labs and Imaging studies reviewed. (See chart for details) Will get labs, chest x-ray, and give asa (has had one 81 mg asa today) as well as EKG. Xray is unremarkable. Labs are unremarkable. Will page Dr. Garcia to admit for additional workup. Discussed with Dr. Garcia who agreed to admission. Will consult Cards. (ANTHONY SAGASTUME APRN) Dragon Disclaimer Dragon Disclaimer This electronic medical record was generated, in whole or in part, using a voice recognition dictation system. (ANTHONY SAGASTUME APRN) Departure Departure Impression: Primary Impression: Chest pain Disposition: ADMITTED INPATIENT Admitting Physician: LUCY (ANTHONY SAGASTUME APRN) Condition: STABLE Referrals: NELLY GUEVARA APRN (PCP) The HEART Score for CP Pts HEART Score for Chest Pain: HEART Score for Chest Pain Response (Comments) Value History Moderately Suspicious 1 ECG Nonspecific Repolarizatio 1 Age >45 - < 65 1 Risk Factors >3 Risk Factors or Hx CAD 2 Troponin < Normal Limit 0 Total 5 Risk Factors: Risk Factors: DM, Current or recent (<one month) smoker, HTN, HLP, family history of CAD, obesity. Risk Scores: Score 0 - 3: 2.5% MACE over next 6 weeks - Discharge Home Score 4 - 6: 20.3% MACE over next 6 weeks - Admit for Clinical Observation Score 7 - 10: 72.7% MACE over next 6 weeks - Early Invasive Strategies (ANTHONY SAGASTUME APRN) Attending Signature Attending Signature I have reviewed the PA/DISPLAY ASSOCIATE's note and plan of care. I was available for consultation as needed during the patient's visit in the emergency department. I agree with the clinical impression, plan, and disposition. (ANTHONY PAULA DO) ANTHONY SAGASTMUE APRN Jan 15, 2019 16:16 ANTHONY PAULA DO Jan 16, 2019 12:30
[2019-01-15 16:29] LABS: BASO % 1 % (0-3); EOS # 0.3 x10^3/uL (0.0-0.7); EOS % 4 % (0-3); HEMATOCRIT 40.7 % (36.0-47.0); HEMOGLOBIN 14.1 g/dL (12.0-15.5); LYMPH % 41 % (24-48); MEAN CORPUSCULAR HEMOGLOBIN 32 pg (25-35); MEAN CORPUSCULAR HGB CONC 35 g/dL (31-37); MEAN CORPUSCULAR VOLUME 93 fL (79-100); MONO # 0.7 x10^3/uL (0.0-1.1); MONO % 10 % (0-9); NEUT # 3.3 x10^3/uL (1.8-7.7); NEUT % 45 % (31-73); PLATELET COUNT 256 x10^3/uL (140-400); RED CELL DISTRIBUTION WIDTH 13.4 % (11.5-14.5); WHITE BLOOD COUNT 7.3 x10^3/uL (4.0-11.0)
[2019-01-15] MEDS ORDERED: ASPIRIN CHEWABLE 81 MG TABLET. PO ONE (16:30)
[2019-01-15 16:40] LABS: PROTHROMBIN TIME PATIENT 13.2 SEC (11.7-14.0)
[2019-01-15 16:42] LABS: CALCIUM 9.4 mg/dL (8.5-10.1); CREATININE 1.2 mg/dL (0.6-1.0); GFR 47.2; POTASSIUM 3.9 mmol/L (3.5-5.1)
[2019-01-15 16:44] LABS: D-DIMER 0.41 ug/mlFEU (0.00-0.50)
[2019-01-15 16:48] LABS: ALBUMIN 3.7 g/dL (3.4-5.0); ALBUMIN/GLOBULIN RATIO 0.8 (1.0-1.7); TOTAL BILIRUBIN 0.3 mg/dL (0.2-1.0); TOTAL PROTEIN 8.1 g/dL (6.4-8.2)
--- NOTE | 2019-01-15 16:59 | RAD ---
CHEST PA LATERAL History: Left-sided chest pain. Comparison: March 02, 2017 Findings: No consolidation or pleural effusion. Normal heart size. Prior median sternotomy. Impression: 1. No acute cardiopulmonary process. Electronically signed by: Messi Blanco DO (01/15/2019 4:57 PM) [facility]
--- NOTE | 2019-01-15 17:19 | PDOC1 ---
History and Physical Date of Admission Date of Admission DATE: 01/15/19 TIME: 17:18 Identification/Chief Complaint Chief Complaint seen in er, 53 year old female who presents since she came flushed at 3 PM and hot and overheated and started not feeling right. The patient states that she also has been having chest pain or last 3 days intermittently. The patient has a history of a ID. The patient sees Dr. Turner. Past Medical History Past Medical History Past Medical History Past Medical History Past Medical History: Asthma, CAD, High Cholesterol, Hypothyroid, ID Additional Past Medical Histor: Esophageal bleed, Cardiac Stents x2. Past Surgical History: Cholecystectomy, Coronary Bypass Surgery, , Hysterectomy Alcohol Use: None Drug Use: None fhx obesity Cardiovascular: CAD, Hyperlipidemia Pulmonary: Other Psych: Anxiety Endocrine: Hypothyroidism Past Surgical History Past Surgical History: Cholecystectomy, CABG, , Tubal Ligation, Hysterectomy Family History Family History: Cancer, Coronary Artery Disease, Diabetes Social History Smoke: No ALCOHOL: none Drugs: None Current Medications Current Medications Current Medications Aspirin (Children'S Aspirin) 243 mg 1X ONCE PO Last administered on 01/15/19at 16:30; Start 01/15/19 at 16:30; Stop 01/15/19 at 16:31; Status DC Active Scripts Active Reported Metformin Hcl 500 Mg Tablet 500 Mg PO BIDWMEALS Pantoprazole Sodium 40 Mg Tablet. 40 Mg PO DAILY Clopidogrel (Clopidogrel Bisulfate) 75 Mg Tablet 75 Mg PO DAILY Aspirin Ec (Aspirin) 325 Mg Tablet.dr 325 Mg PO DAILY Alprazolam 0.5 Mg Tablet 0.5 Mg PO BID Simvastatin 5 Mg Tablet 20 Mg PO HS Levothyroxine Sodium 25 Mcg Tablet 100 Mcg PO DAILY Spironolactone 25 Mg Tablet 25 Mg PO DAILY Allergies Allergies: Coded Allergies: diazepam (Verified Allergy, Severe, Hives/shortness of breath/increased anxiety, 02/22/17) lidocaine (Verified Adverse Reaction, Mild, "BRUISES ME IMMEDIATELY", 01/15/19) ROS Review of System Review of Systems Review of Systems Constitutional: Denies fever or chills. Reports flushing. Eyes: Denies change in visual acuity, redness, or eye pain [] HENT: Denies nasal congestion or sore throat [] Respiratory: Denies cough or shortness of breath [] Cardiovascular: No additional information not addressed in HPI [] GI: Denies abdominal pain, nausea, vomiting, bloody stools or diarrhea [] : Denies dysuria or hematuria [] Musculoskeletal: Denies back pain or joint pain [] Integument: Denies rash or skin lesions [] Neurologic: Denies headache, focal weakness or sensory changes [] Endocrine: Denies polyuria or polydipsia [] 14 pt systems were reviewed and found to be within normal limits, except as documented PSYCHOLOGICAL ROS: YES: Anxiety; No: Behavioral Disorder, Concentration difficultie, Decreased libido, Depression, Disorientation, Hallucinations, Hostility, Irritablity, Memory difficulties, Mood Swings, Obsessive thoughts, Physical abuse, Sexual abuse, Sleep disturbances, Suicidal ideation, Other Hematological and Lymphatic: No: Bleeding Problems, Blood Clots, Blood Transfusions, Brusing, Night Sweats, Pallor, Swollen Lymph Nodes, Other Respiratory: YES: Shortness of breath Physical Exam Physical Exam Physical Exam Physical Exam Constitutional: Well developed, well nourished, no acute distress, non-toxic appearance. [] very obese HENT: Normocephalic, atraumatic, bilateral external ears normal, oropharynx moist, no oral exudates, nose normal. [] Eyes: PERRLA, EOMI, conjunctiva normal, no discharge. [] Neck: Normal range of motion, no tenderness, supple, no stridor. [] Cardiovascular:Heart rate regular rhythm, no murmur [] Lungs & Thorax: Bilateral breath sounds clear to auscultation [] Abdomen: Bowel sounds normal, soft, no tenderness, no masses, no pulsatile masses. [] Skin: Warm, dry, no erythema, no rash. [] Back: No tenderness, no CVA tenderness. [] Extremities: No tenderness, no cyanosis, no clubbing, ROM intact, no edema. [] Neurologic: Alert and oriented X 3, normal motor function, normal sensory function, no focal deficits noted. [] Psychologic: Affect normal, judgement normal, mood normal. [] General: Alert, Oriented X3, Cooperative, No acute distress Lungs: Clear to auscultation Breasts: Not examined Abdomen: Normal bowel sounds, Soft Rectal Exam: not examined Extremities: No cyanosis Neuro: Normal speech, Cranial nerves 3-12 NL Psych/Mental Status: Mental status NL, Mood NL Vitals Vitals Vital Signs Date Time Temp Pulse Resp B/P (MAP) Pulse Ox O2 Delivery O2 Flow Rate FiO2 01/15/19 15:52 97.6 69 14 134/81 (98) 94 Room Air 97.6 Labs Labs Laboratory Tests Test 01/15/19 16:13 White Blood Count 7.3 x10^3/uL (4.0-11.0) Red Blood Count 4.40 x10^6/uL (3.50-5.40) Hemoglobin 14.1 g/dL (12.0-15.5) Hematocrit 40.7 % (36.0-47.0) Mean Corpuscular Volume 93 fL (79-100) Mean Corpuscular Hemoglobin 32 pg (25-35) Mean Corpuscular Hemoglobin Concent 35 g/dL (31-37) Red Cell Distribution Width 13.4 % (11.5-14.5) Platelet Count 256 x10^3/uL (140-400) Neutrophils (%) (Auto) 45 % (31-73) Lymphocytes (%) (Auto) 41 % (24-48) Monocytes (%) (Auto) 10 % (0-9) Eosinophils (%) (Auto) 4 % (0-3) Basophils (%) (Auto) 1 % (0-3) Neutrophils # (Auto) 3.3 x10^3/uL (1.8-7.7) Lymphocytes # (Auto) 3.0 x10^3/uL (1.0-4.8) Monocytes # (Auto) 0.7 x10^3/uL (0.0-1.1) Eosinophils # (Auto) 0.3 x10^3/uL (0.0-0.7) Basophils # (Auto) 0.0 x10^3/uL (0.0-0.2) Prothrombin Time 13.2 SEC (11.7-14.0) Prothromb Time International Ratio 1.0 (0.8-1.1) Activated Partial Thromboplast Time 32 SEC (24-38) D-Dimer (Tejal) 0.41 ug/mlFEU (0.00-0.50) Sodium Level 141 mmol/L (136-145) Potassium Level 3.9 mmol/L (3.5-5.1) Chloride Level 105 mmol/L (98-107) Carbon Dioxide Level 30 mmol/L (21-32) Anion Gap 6 (6-14) Blood Urea Nitrogen 14 mg/dL (7-20) Creatinine 1.2 mg/dL (0.6-1.0) Estimated GFR (Cockcroft-Gault) 47.2 BUN/Creatinine Ratio 12 (6-20) Glucose Level 116 mg/dL (70-99) Calcium Level 9.4 mg/dL (8.5-10.1) Total Bilirubin 0.3 mg/dL (0.2-1.0) Aspartate Amino Transf (AST/SGOT) 25 U/L (15-37) Alanine Aminotransferase (ALT/SGPT) 29 U/L (14-59) Alkaline Phosphatase 72 U/L (46-116) Troponin I Quantitative < 0.017 ng/mL (0.000-0.055) Total Protein 8.1 g/dL (6.4-8.2) Albumin 3.7 g/dL (3.4-5.0) Albumin/Globulin Ratio 0.8 (1.0-1.7) Thyroid Stimulating Hormone (TSH) 1.879 uIU/mL (0.358-3.74) Laboratory Tests Test 01/15/19 16:13 White Blood Count 7.3 x10^3/uL (4.0-11.0) Red Blood Count 4.40 x10^6/uL (3.50-5.40) Hemoglobin 14.1 g/dL (12.0-15.5) Hematocrit 40.7 % (36.0-47.0) Mean Corpuscular Volume 93 fL (79-100) Mean Corpuscular Hemoglobin 32 pg (25-35) Mean Corpuscular Hemoglobin Concent 35 g/dL (31-37) Red Cell Distribution Width 13.4 % (11.5-14.5) Platelet Count 256 x10^3/uL (140-400) Neutrophils (%) (Auto) 45 % (31-73) Lymphocytes (%) (Auto) 41 % (24-48) Monocytes (%) (Auto) 10 % (0-9) Eosinophils (%) (Auto) 4 % (0-3) Basophils (%) (Auto) 1 % (0-3) Neutrophils # (Auto) 3.3 x10^3/uL (1.8-7.7) Lymphocytes # (Auto) 3.0 x10^3/uL (1.0-4.8) Monocytes # (Auto) 0.7 x10^3/uL (0.0-1.1) Eosinophils # (Auto) 0.3 x10^3/uL (0.0-0.7) Basophils # (Auto) 0.0 x10^3/uL (0.0-0.2) Prothrombin Time 13.2 SEC (11.7-14.0) Prothromb Time International Ratio 1.0 (0.8-1.1) Activated Partial Thromboplast Time 32 SEC (24-38) D-Dimer (Tejal) 0.41 ug/mlFEU (0.00-0.50) Sodium Level 141 mmol/L (136-145) Potassium Level 3.9 mmol/L (3.5-5.1) Chloride Level 105 mmol/L (98-107) Carbon Dioxide Level 30 mmol/L (21-32) Anion Gap 6 (6-14) Blood Urea Nitrogen 14 mg/dL (7-20) Creatinine 1.2 mg/dL (0.6-1.0) Estimated GFR (Cockcroft-Gault) 47.2 BUN/Creatinine Ratio 12 (6-20) Glucose Level 116 mg/dL (70-99) Calcium Level 9.4 mg/dL (8.5-10.1) Total Bilirubin 0.3 mg/dL (0.2-1.0) Aspartate Amino Transf (AST/SGOT) 25 U/L (15-37) Alanine Aminotransferase (ALT/SGPT) 29 U/L (14-59) Alkaline Phosphatase 72 U/L (46-116) Troponin I Quantitative < 0.017 ng/mL (0.000-0.055) Total Protein 8.1 g/dL (6.4-8.2) Albumin 3.7 g/dL (3.4-5.0) Albumin/Globulin Ratio 0.8 (1.0-1.7) Thyroid Stimulating Hormone (TSH) 1.879 uIU/mL (0.358-3.74) Images Images INDICATION The indication(s) include : unstable angina , chest pain, dyspnea. CASE TECHNIQUE The patient was brought electively into the cardiac catheterization lab. A timeout was performed confirming the patient's name, date of , procedure, and site of procedure. All necessary parties were wearing the appropriate personal protective equipment and radiation monitoring devices. After explaining the risks and benefits of the procedure, informed consent was obtained.(See nursing notes for medications administered). The right groin was sterilely prepped and draped. The right femoral groin was infiltrated with 1% Lidocaine subcutaneous anesthesia. During this case, Fluoroscopy and low osmolar contrast were used for imaging. A sheath was inserted into the right femoral artery without difficulty. Coronary angiography was performed using coronary diagnostic catheters. The left coronary system was accessed and visualized with a Diagnostic catheter. The right coronary system was accessed and visualized with a Diagnostic catheter. The left ventricle was accessed and visualized with a Diagnostic catheter. The left internal mammary artery was accessed and visualized with a Diagnostic catheter. Left ventricular/Aortic Valve gradient assessed on pullback. Left ventriculogram was performed in BEY projection. An aortogram of the ascending aorta was performed. Pre-demployment femoral angiogram was performed . Closure device was deployed with a Angioseal without any complications. The patient tolerated the procedure well and there were no complications associated with the procedure. Coronary Angiography The patient's coronary anatomy is right dominant. The left main coronary artery is a medium size vessel free of disease. The left main bifurcates to the left anterior descending and circumflex. The left anterior descending artery is a medium size vessel with stenosis. There is a 100% stenosis in the mid segment. The first diagonal branch is a small size vessel free of disease. The circumflex artery is a large size vessel free of disease. The first obtuse marginal branch is a medium size vessel free of disease. The second obtuse marginal branch is a small size vessel free of disease. The third obtuse margin al branch is a small size vessel free of disease. The right coronary artery is a medium size vessel free of disease. The right posterior descending artery is a small size vessel free of disease. The right posterolateral branch is a small size vessel free of disease. The left internal mammary artery to the mid left anterior descending artery segment is patent the LAD is a very small caliber vessel distal to the anastomosis. Left Ventriculography The left ventricle is normal in size with normal contractility. The left ventricular ejection fraction is estimated to be 55%. The left ventricular end diastolic pressure is 18 mmHg. There was no gradient across the aortic valve upon pullback. Conclusion This patient with douglas vessel coronary artery disease passing the graft to the LAD that is open and normal. 11/26 The LAD and the GUERRERO graft are very small in caliber. I would recommend medical treatment and consider a GI workup. DICTATED and SIGNED BY: GOLD MALDONADO MD DATE: 11/12/15 1631 Tricuspid Valve TR P. Velocity 299cm/s RAP ESTIMATE 3mmHg TR Peak Gr. 36mmHg RVSP 39mmHg Pulmonary Vein S1 Velocity 42.0cm/s D2 Velocity 47.4cm/s LEFT VENTRICLE The left ventricle is normal size. There is normal left ventricular wall thickness. The left ventricular systolic function is normal and the ejection fraction is within normal range. The Ejection Fraction is 55-60%. There is normal LV segmental wall motion. Septal motion consistent with conduction abnor mality. Transmitral Doppler flow pattern is Grade II-pseudonormal filling dynamics. RIGHT VENTRICLE The right ventricle is normal size. The right ventricular systolic function is normal. ATRIA The left atrium is mildly dilated. The right atrium size is normal. The interatrial septum is intact with no evidence for an atrial septal defect or patent foramen ovale as noted on 2-D or Doppler imaging. AORTIC VALVE The aortic valve is normal in structure and function. Doppler and Color Flow revealed no significant aortic regurgitation. There is no significant aortic valvular stenosis. MITRAL VALVE The mitral valve is normal in structure and function. There is no evidence of mitral valve prolapse. There is no mitral valve stenosis. Doppler and Color-flow revealed trace mitral regurgitation. TRICUSPID VALVE The tricuspid valve is normal in structure and function. Doppler and Color Flow revealed trace tricuspid regurgitation.There is mild pulmonary hypertension.The PA pressure was estimated at 39 mmHg. There is no tricuspid valve stenosis. PULMONIC VALVE The pulmonic valve is not well visualized. Doppler and Color Flow revealed trace pulmonic valvular regurgitation. There is no pulmonic valvular stenosis. GREAT VESSELS The aortic root is normal in size. The ascending aorta is normal in size. The IVC is normal in size and collapses >50% with inspiration. PERICARDIAL EFFUSION There is no evidence of significant pericardial effusion. Critical Notification Critical Value: No <Conclusion> The left ventricular systolic function is normal and the ejection fraction is within normal range. The Ejection Fraction is 55-60%. There is normal LV segmental wall motion. Septal motion consistent with conduction abnormality. Doppler and Color Flow revealed trace tricuspid regurgitation.There is mild pulmonary hypertension.The PA pressure was estimated at 39 mmHg. Signed by : Bob Turner, VTE Prophylaxis Ordered VTE Prophylaxis Devices: Yes VTE Pharmacological Prophylaxi: Yes Assessment/Plan Assessment/Plan Impression: Chest pain extreme morbid obesity mild pulmonary hypertension.The PA pressure was estimated at 39 mmHg. recent echo metabolic syndrome hx gerd ADMITTED tele serial troponin i cardiology consult home meds tele dvt prophylaxis wt reduction needed accuchecks qid protonix ERIKA ALLEN MD Jan 15, 2019 17:19
[2019-01-15 17:30] LABS: BILIRUBIN,URINE NEGATIVE (NEG); CLARITY,URINE CLOUDY; COLOR,URINE YELLOW; NITRITE,URINE NEGATIVE (NEG); PROTEIN,URINE NEGATIVE (NEG-TRACE); UROBILINOGEN,URINE 0.2 mg/dL (0.2 mg/dL)
[2019-01-15 17:36] LABS: SQUAMOUS EPITHELIAL CELL,UR MOD /LPF
[2019-01-15 17:37] LABS: BACTERIA,URINE FEW /HPF (0-FEW); RBC,URINE 0 /HPF (0-2)
[2019-01-15] MEDS ORDERED: ONDANSETRON PF 4 MG/2 ML VIAL. IV PRN (17:45)
[2019-01-15] MEDS ORDERED: MORPHINE SULFATE 2 MG/ML VIAL. IV PRN (17:45)
--- NOTE | 2019-01-15 20:40 | NUR ---
Admit from ED via [facility]. Patient amb from [facility] in [facility] to bed in room with steady gait. A/O x 4. Peasant. VSS. Family at bedside. Orientated to unit and call light. Reviewed POC to include serial troponins. Verbalized understanding. Offered bariatric bed, patient declined.
[2019-01-15] MEDS ORDERED: ASPI-630 PO (21:17)
[2019-01-15] MEDS ORDERED: SIMV20TA3 PO (21:17)
[2019-01-15 21:24] VITALS: BP 141/65
[2019-01-15] MEDS ORDERED: SIMVASTATIN 20 MG TABLET PO SCH (21:45)
[2019-01-15] MEDS: ALPRAZolam 0.5 MG TABLET PO SCH (22:13)
[2019-01-15 23:06] VITALS: BP 136/69
[2019-01-16 03:04] VITALS: BP 90/34
[2019-01-16] MEDS ORDERED: LEVOTHYROXINE 100 MCG TABLET PO SCH (06:00)
--- NOTE | 2019-01-16 06:24 | EKG ---
[facility] [address] [place] [address] Test Date: 2019-01-15 Test Time: 15:45:17 Pat Name: CARYN GUY Department: Room: Gender: F [employer]amer: : 1965 Requested By: ANTHONY SAGASTUME Order Number: [id number] Reading MD: Measurements Intervals [place] Rate: 74 P: 54 [place]: 156 QRS: 82 QRSD: 94 T: 99 QT: 374 QTc: 416 Interpretive Statements SINUS RHYTHM LEFT ATRIAL ABNORMALITY T ABNORMALITY IN HIGH LATERAL LEADS ABNORMAL ECG RI6.01 Unconfirmed report No previous ECG available for comparison
[2019-01-16] MEDS ORDERED: IV DEXTROSE 5% 250 ML BAG. IV PRN (06:30)
[2019-01-16] MEDS ORDERED: DEXTROSE 50% 25 GM / 50ML DISP.SYRIN. IV PRN (06:30)
[2019-01-16 07:00] VITALS: BP 141/61
[2019-01-16] MEDS: INSULIN LISPRO 300 UNITS/3 ML VIAL. SQ SCH ×2 (08:00→12:00)
--- NOTE | 2019-01-16 08:42 | PDOC ---
PROGRESS NOTES History of Present Illness History of Present Illness VTE Prophylaxis Ordered VTE Prophylaxis Devices: Yes VTE Pharmacological Prophylaxi: Yes Assessment/Plan Assessment/Plan Impression: Chest pain extreme morbid obesity mild pulmonary hypertension.The PA pressure was estimated at 39 mmHg. recent echo metabolic syndrome hx gerd ADMITTED tele cvc serial troponin i cardiology consult home meds tele dvt prophylaxis echo wt reduction needed accuchecks qid protonix DC ASA soon with upcoming gastric sleeve and could transition to plavix , once cleared by her surgeon. 38 min pt exam, chart review, > 50% of time spent with exam, chart review, pt care coordination Vitals Vitals Vital Signs Date Time Temp Pulse Resp B/P (MAP) Pulse Ox O2 Delivery O2 Flow Rate FiO2 01/16/19 07:00 97.4 58 12 141/61 (87) 99 Room Air 97.4 Physical Exam General: Alert, Oriented X3, Cooperative, No acute distress Heart: Regular rate Lungs: Clear Abdomen: Normal bowel sounds, Soft, No tenderness Extremities: No clubbing, No cyanosis Skin: No significant lesion Labs LABS HISTORY 11/2015 coronary artery disease: previous PCI (The PCI date was ), hypertension, previous CABG (The CABG date was ), dyslipidemia. INDICATION The indication(s) include : unstable angina , chest pain, dyspnea. CASE TECHNIQUE The patient was brought electively into the cardiac catheterization lab. A timeout was performed confirming the patient's name, date of , procedure, and site of procedure. All necessary parties were wearing the appropriate personal protective equipment and radiation monitoring devices. After explaining the risks and benefits of the procedure, informed consent was obtained.(See nursing notes for medications administered). The right groin was sterilely prepped and draped. The right femoral groin was infiltrated with 1% Lidocaine subcutaneous anesthesia. During this case, Fluoroscopy and low osmolar contrast were used for imaging. A sheath was inserted into the right femoral artery without difficulty. Coronary angiography was performed using coronary diagnostic catheters. The left coronary system was accessed and visualized with a Diagnostic catheter. The right coronary system was accessed and visualized with a Diagnostic catheter. The left ventricle was accessed and visualized with a Diagnostic catheter. The left internal mammary artery was accessed and visualized with a Diagnostic catheter. Left ventricular/Aortic Valve gradient assessed on pullback. Left ventriculogram was performed in BEY projection. An aortogram of the ascending aorta was performed. Pre-demployment femoral angiogram was performed . Closure device was deployed with a Angioseal without any complications. The patient tolerated the procedure well and there were no complications associated with the procedure. Coronary Angiography The patient's coronary anatomy is right dominant. The left main coronary artery is a medium size vessel free of disease. The left main bifurcates to the left anterior descending and circumflex. The left anterior descending artery is a medium size vessel with stenosis. There is a 100% stenosis in the mid segment. The first diagonal branch is a small size vessel free of disease. The circumflex artery is a large size vessel free of disease. The first obtuse marginal branch is a medium size vessel free of disease. The second obtuse marginal branch is a small size vessel free of disease. The third obtuse mar ginal branch is a small size vessel free of disease. The right coronary artery is a medium size vessel free of disease. The right posterior descending artery is a small size vessel free of disease. The right posterolateral branch is a small size vessel free of disease. The left internal mammary artery to the mid left anterior descending artery segment is patent the LAD is a very small caliber vessel distal to the anastomosis. Left Ventriculography The left ventricle is normal in size with normal contractility. The left ventricular ejection fraction is estimated to be 55%. The left ventricular end diastolic pressure is 18 mmHg. There was no gradient across the aortic valve upon pullback. Conclusion This patient with huslia vessel coronary artery disease passing the graft to the LAD that is open and normal. The LAD and the GUERRERO graft are very small in caliber. Laboratory Tests Test 01/15/19 16:13 01/15/19 17:23 01/15/19 18:28 01/15/19 20:15 White Blood Count 7.3 x10^3/uL (4.0-11.0) Red Blood Count 4.40 x10^6/uL (3.50-5.40) Hemoglobin 14.1 g/dL (12.0-15.5) Hematocrit 40.7 % (36.0-47.0) Mean Corpuscular Volume 93 fL (79-100) Mean Corpuscular Hemoglobin 32 pg (25-35) Mean Corpuscular Hemoglobin Concent 35 g/dL (31-37) Red Cell Distribution Width 13.4 % (11.5-14.5) Platelet Count 256 x10^3/uL (140-400) Neutrophils (%) (Auto) 45 % (31-73) Lymphocytes (%) (Auto) 41 % (24-48) Monocytes (%) (Auto) 10 % (0-9) Eosinophils (%) (Auto) 4 % (0-3) Basophils (%) (Auto) 1 % (0-3) Neutrophils # (Auto) 3.3 x10^3/uL (1.8-7.7) Lymphocytes # (Auto) 3.0 x10^3/uL (1.0-4.8) Monocytes # (Auto) 0.7 x10^3/uL (0.0-1.1) Eosinophils # (Auto) 0.3 x10^3/uL (0.0-0.7) Basophils # (Auto) 0.0 x10^3/uL (0.0-0.2) Prothrombin Time 13.2 SEC (11.7-14.0) Prothromb Time International Ratio 1.0 (0.8-1.1) Activated Partial Thromboplast Time 32 SEC (24-38) D-Dimer (Tejal) 0.41 ug/mlFEU (0.00-0.50) Sodium Level 141 mmol/L (136-145) Potassium Level 3.9 mmol/L (3.5-5.1) Chloride Level 105 mmol/L (98-107) Carbon Dioxide Level 30 mmol/L (21-32) Anion Gap 6 (6-14) Blood Urea Nitrogen 14 mg/dL (7-20) Creatinine 1.2 mg/dL (0.6-1.0) Estimated GFR (Cockcroft-Gault) 47.2 BUN/Creatinine Ratio 12 (6-20) Glucose Level 116 mg/dL (70-99) Calcium Level 9.4 mg/dL (8.5-10.1) Total Bilirubin 0.3 mg/dL (0.2-1.0) Aspartate Amino Transf (AST/SGOT) 25 U/L (15-37) Alanine Aminotransferase (ALT/SGPT) 29 U/L (14-59) Alkaline Phosphatase 72 U/L (46-116) Troponin I Quantitative < 0.017 ng/mL (0.000-0.055) < 0.017 ng/mL (0.000-0.055) Total Protein 8.1 g/dL (6.4-8.2) Albumin 3.7 g/dL (3.4-5.0) Albumin/Globulin Ratio 0.8 (1.0-1.7) Thyroid Stimulating Hormone (TSH) 1.879 uIU/mL (0.358-3.74) Urine Collection Type Unknown Urine Color Yellow Urine Clarity Cloudy Urine pH 5.0 Urine Specific [place] 1.015 Urine Protein Negative mg/dL (NEG-TRACE) Urine Glucose (UA) Negative mg/dL (NEG) Urine Ketones (Stick) Negative mg/dL (NEG) Urine Blood Negative (NEG) Urine Nitrite Negative (NEG) Urine Bilirubin Negative (NEG) Urine Urobilinogen Dipstick 0.2 mg/dL (0.2 mg/dL) Urine Leukocyte Esterase Small (NEG) Urine RBC 0 /HPF (0-2) Urine WBC 5-10 /HPF (0-4) Urine Squamous Epithelial Cells Mod /LPF Urine Bacteria Few /HPF (0-FEW) Urine Mucus Mod /LPF Glucose (Fingerstick) 97 mg/dL (70-99) Test 01/15/19 23:25 01/16/19 07:08 Troponin I Quantitative < 0.017 ng/mL (0.000-0.055) Glucose (Fingerstick) 120 mg/dL (70-99) Assessment and Plan Assessmemt and Plan Problems Medical Problems: (1) Chest pain Status: Acute Comment Review of Relevant I have reviewed the following items anita (where applicable) has been applied. Labs Laboratory Tests Test 01/15/19 16:13 01/15/19 17:23 01/15/19 18:28 01/15/19 20:15 White Blood Count 7.3 x10^3/uL (4.0-11.0) Red Blood Count 4.40 x10^6/uL (3.50-5.40) Hemoglobin 14.1 g/dL (12.0-15.5) Hematocrit 40.7 % (36.0-47.0) Mean Corpuscular Volume 93 fL (79-100) Mean Corpuscular Hemoglobin 32 pg (25-35) Mean Corpuscular Hemoglobin Concent 35 g/dL (31-37) Red Cell Distribution Width 13.4 % (11.5-14.5) Platelet Count 256 x10^3/uL (140-400) Neutrophils (%) (Auto) 45 % (31-73) Lymphocytes (%) (Auto) 41 % (24-48) Monocytes (%) (Auto) 10 % (0-9) Eosinophils (%) (Auto) 4 % (0-3) Basophils (%) (Auto) 1 % (0-3) Neutrophils # (Auto) 3.3 x10^3/uL (1.8-7.7) Lymphocytes # (Auto) 3.0 x10^3/uL (1.0-4.8) Monocytes # (Auto) 0.7 x10^3/uL (0.0-1.1) Eosinophils # (Auto) 0.3 x10^3/uL (0.0-0.7) Basophils # (Auto) 0.0 x10^3/uL (0.0-0.2) Prothrombin Time 13.2 SEC (11.7-14.0) Prothromb Time International Ratio 1.0 (0.8-1.1) Activated Partial Thromboplast Time 32 SEC (24-38) D-Dimer (Tejal) 0.41 ug/mlFEU (0.00-0.50) Sodium Level 141 mmol/L (136-145) Potassium Level 3.9 mmol/L (3.5-5.1) Chloride Level 105 mmol/L (98-107) Carbon Dioxide Level 30 mmol/L (21-32) Anion Gap 6 (6-14) Blood Urea Nitrogen 14 mg/dL (7-20) Creatinine 1.2 mg/dL (0.6-1.0) Estimated GFR (Cockcroft-Gault) 47.2 BUN/Creatinine Ratio 12 (6-20) Glucose Level 116 mg/dL (70-99) Calcium Level 9.4 mg/dL (8.5-10.1) Total Bilirubin 0.3 mg/dL (0.2-1.0) Aspartate Amino Transf (AST/SGOT) 25 U/L (15-37) Alanine Aminotransferase (ALT/SGPT) 29 U/L (14-59) Alkaline Phosphatase 72 U/L (46-116) Troponin I Quantitative < 0.017 ng/mL (0.000-0.055) < 0.017 ng/mL (0.000-0.055) Total Protein 8.1 g/dL (6.4-8.2) Albumin 3.7 g/dL (3.4-5.0) Albumin/Globulin Ratio 0.8 (1.0-1.7) Thyroid Stimulating Hormone (TSH) 1.879 uIU/mL (0.358-3.74) Urine Collection Type Unknown Urine Color Yellow Urine Clarity Cloudy Urine pH 5.0 Urine Specific [place] 1.015 Urine Protein Negative mg/dL (NEG-TRACE) Urine Glucose (UA) Negative mg/dL (NEG) Urine Ketones (Stick) Negative mg/dL (NEG) Urine Blood Negative (NEG) Urine Nitrite Negative (NEG) Urine Bilirubin Negative (NEG) Urine Urobilinogen Dipstick 0.2 mg/dL (0.2 mg/dL) Urine Leukocyte Esterase Small (NEG) Urine RBC 0 /HPF (0-2) Urine WBC 5-10 /HPF (0-4) Urine Squamous Epithelial Cells Mod /LPF Urine Bacteria Few /HPF (0-FEW) Urine Mucus Mod /LPF Glucose (Fingerstick) 97 mg/dL (70-99) Test 01/15/19 23:25 01/16/19 07:08 Troponin I Quantitative < 0.017 ng/mL (0.000-0.055) Glucose (Fingerstick) 120 mg/dL (70-99) Laboratory Tests Test 01/15/19 16:13 01/15/19 17:23 01/15/19 18:28 01/15/19 20:15 White Blood Count 7.3 x10^3/uL (4.0-11.0) Red Blood Count 4.40 x10^6/uL (3.50-5.40) Hemoglobin 14.1 g/dL (12.0-15.5) Hematocrit 40.7 % (36.0-47.0) Mean Corpuscular Volume 93 fL (79-100) Mean Corpuscular Hemoglobin 32 pg (25-35) Mean Corpuscular Hemoglobin Concent 35 g/dL (31-37) Red Cell Distribution Width 13.4 % (11.5-14.5) Platelet Count 256 x10^3/uL (140-400) Neutrophils (%) (Auto) 45 % (31-73) Lymphocytes (%) (Auto) 41 % (24-48) Monocytes (%) (Auto) 10 % (0-9) Eosinophils (%) (Auto) 4 % (0-3) Basophils (%) (Auto) 1 % (0-3) Neutrophils # (Auto) 3.3 x10^3/uL (1.8-7.7) Lymphocytes # (Auto) 3.0 x10^3/uL (1.0-4.8) Monocytes # (Auto) 0.7 x10^3/uL (0.0-1.1) Eosinophils # (Auto) 0.3 x10^3/uL (0.0-0.7) Basophils # (Auto) 0.0 x10^3/uL (0.0-0.2) Prothrombin Time 13.2 SEC (11.7-14.0) Prothromb Time International Ratio 1.0 (0.8-1.1) Activated Partial Thromboplast Time 32 SEC (24-38) D-Dimer (Tejal) 0.41 ug/mlFEU (0.00-0.50) Sodium Level 141 mmol/L (136-145) Potassium Level 3.9 mmol/L (3.5-5.1) Chloride Level 105 mmol/L (98-107) Carbon Dioxide Level 30 mmol/L (21-32) Anion Gap 6 (6-14) Blood Urea Nitrogen 14 mg/dL (7-20) Creatinine 1.2 mg/dL (0.6-1.0) Estimated GFR (Cockcroft-Gault) 47.2 BUN/Creatinine Ratio 12 (6-20) Glucose Level 116 mg/dL (70-99) Calcium Level 9.4 mg/dL (8.5-10.1) Total Bilirubin 0.3 mg/dL (0.2-1.0) Aspartate Amino Transf (AST/SGOT) 25 U/L (15-37) Alanine Aminotransferase (ALT/SGPT) 29 U/L (14-59) Alkaline Phosphatase 72 U/L (46-116) Troponin I Quantitative < 0.017 ng/mL (0.000-0.055) < 0.017 ng/mL (0.000-0.055) Total Protein 8.1 g/dL (6.4-8.2) Albumin 3.7 g/dL (3.4-5.0) Albumin/Globulin Ratio 0.8 (1.0-1.7) Thyroid Stimulating Hormone (TSH) 1.879 uIU/mL (0.358-3.74) Urine Collection Type Unknown Urine Color Yellow Urine Clarity Cloudy Urine pH 5.0 Urine Specific [place] 1.015 Urine Protein Negative mg/dL (NEG-TRACE) Urine Glucose (UA) Negative mg/dL (NEG) Urine Ketones (Stick) Negative mg/dL (NEG) Urine Blood Negative (NEG) Urine Nitrite Negative (NEG) Urine Bilirubin Negative (NEG) Urine Urobilinogen Dipstick 0.2 mg/dL (0.2 mg/dL) Urine Leukocyte Esterase Small (NEG) Urine RBC 0 /HPF (0-2) Urine WBC 5-10 /HPF (0-4) Urine Squamous Epithelial Cells Mod /LPF Urine Bacteria Few /HPF (0-FEW) Urine Mucus Mod /LPF Glucose (Fingerstick) 97 mg/dL (70-99) Test 01/15/19 23:25 01/16/19 07:08 Troponin I Quantitative < 0.017 ng/mL (0.000-0.055) Glucose (Fingerstick) 120 mg/dL (70-99) Medications Current Medications Aspirin (Children'S Aspirin) 243 mg 1X ONCE PO Last administered on 01/15/19at 16:30; Start 01/15/19 at 16:30; Stop 01/15/19 at 16:31; Status DC Ondansetron HCl (Zofran) 4 mg PRN Q8HRS PRN IV NAUSEA/VOMITING; Start 01/15/19 at 17:45; Stop 01/16/19 at 17:44 Morphine Sulfate (Morphine Sulfate) 2 mg PRN Q2HR PRN IV PAIN; Start 01/15/19 at 17:45; Stop 01/16/19 at 17:44 Alprazolam (Xanax) 0.5 mg BID PO ; Start 01/16/19 at 21:00; Stop 01/15/19 at 21:35; Status DC Aspirin (Ecotrin) 325 mg DAILY PO ; Start 01/16/19 at 09:00 Clopidogrel Bisulfate (Plavix) 75 mg DAILY PO ; Start 01/16/19 at 09:00 Levothyroxine Sodium (Synthroid) 100 mcg DAILY06 PO Last administered on 01/16/19at 06:42; Start 01/16/19 at 06:00 Pantoprazole Sodium (Protonix) 40 mg DAILY PO ; Start 01/16/19 at 09:00 Simvastatin (Zocor) 20 mg HS PO ; Start 01/16/19 at 21:00; Stop 01/15/19 at 21:41; Status DC Spironolactone (Aldactone) 25 mg DAILY PO ; Start 01/16/19 at 09:00 Alprazolam (Xanax) 0.5 mg BID PO Last administered on 01/15/19at 22:13; Start 01/15/19 at 21:45 Simvastatin (Zocor) 20 mg HS PO Last administered on 01/15/19at 22:13; Start 01/15/19 at 21:45 Insulin Human Lispro (HumaLOG) 0-5 UNITS TIDWMEALS SQ ; Start 01/16/19 at 08:00 Dextrose (Dextrose 50%-Water Syringe) 12.5 gm PRN Q15MIN PRN IV SEE COMMENTS; Start 01/16/19 at 06:30 Dextrose 250 ml PRN Q15MIN PRN IV SEE COMMENTS; Start 01/16/19 at 06:30 Active Scripts Active Reported Aspirin 81 Mg Tab.chew 81 Mg PO DAILY Simvastatin 20 Mg Tablet 20 Mg PO HS Metformin Hcl 500 Mg Tablet 500 Mg PO BIDWMEALS Pantoprazole Sodium (Pantoprazole Sodium) 40 Mg Tablet. 40 Mg PO DAILY Clopidogrel (Clopidogrel Bisulfate) 75 Mg Tablet 75 Mg PO DAILY Alprazolam 0.5 Mg Tablet 0.5 Mg PO BID Levothyroxine Sodium 25 Mcg Tablet 100 Mcg PO DAILY Spironolactone 25 Mg Tablet 25 Mg PO DAILY Vitals/I & O Vital Sign - Last 24 Hours 01/15/19 01/15/19 01/15/19 01/15/19 15:52 16:31 16:50 17:25 Temp 97.6 97.6 Pulse 69 72 64 69 Resp 14 18 18 18 B/P (MAP) 134/81 (98) Pulse Ox 94 93 98 99 O2 Delivery Room Air 01/15/19 01/15/19 01/15/19 01/15/19 19:43 20:14 20:40 21:24 Temp 97.6 97.6 Pulse 67 64 59 Resp 18 18 18 B/P (MAP) 141/65 (90) Pulse Ox 100 98 99 O2 Delivery Room Air Room Air 01/15/19 01/16/19 01/16/19 23:06 03:04 07:00 Temp 98.0 97.5 97.4 98.0 97.5 97.4 Pulse 61 71 58 Resp 18 12 12 B/P (MAP) 136/69 (91) 90/34 (52) 141/61 (87) Pulse Ox 97 96 99 O2 Delivery Room Air BiPAP/CPAP Room Air Intake and Output 01/15/19 01/15/19 01/16/19 15:00 23:00 07:00 Intake Total 0 ml Balance 0 ml ERIKA ALLEN MD Jan 16, 2019 08:42
[2019-01-16] MEDS: ALPRAZolam 0.5 MG TABLET PO SCH (08:47)
[2019-01-16] MEDS ORDERED: SPIRONOLACTONE 25 MG TABLET PO SCH (09:00)
[2019-01-16] MEDS ORDERED: CLOPIDOGREL BISULFATE 75 MG TABLET PO SCH (09:00)
[2019-01-16] MEDS ORDERED: PANTOPRAZOLE 40 MG TABLET.DR. PO SCH (09:00)
[2019-01-16] MEDS ORDERED: ASPIRIN ENTERIC COATED 325 MG TABLET.DR. PO SCH (09:00)
--- NOTE | 2019-01-16 10:54 | PDOC2 ---
DOLLY SCHMITZ SAP INTEGRATION ARCHITECT 01/16/19 1054: CARDIAC CONSULT DATE OF CONSULT Date of Consult DATE: 01/16/19 TIME: 10:35 REASON FOR CONSULT Reason for Consult: Chest pain REFERRING PHYSICIAN Referring Physician: Rylie SOURCE Source: Chart review, Patient HISTORY OF PRESENT ILLNESS HISTORY OF PRESENT ILLNESS This is a pleasant 53 yo female admitted for complains of chest pain. Reports that she has been stressed out lately with her brother having brain tumor, her work as a customer account manager. Yesterday evening she felt overwhelmed and and felt tightness in her chest like having a pulled muscle. Nonradiating. She felt hot and flushed at that time and felt panic. This event lasted about 20 minutes. No nausea no SOA. but just felt anxious. Reports no CARLTON nor exertional CP. No frequent dizziness, palpitations nor passing out. No recent injury, falls or any significant heavy lifting. Her workup is ongoing for future gastric sleeve. No prior hx of VTE but has had CABG in the past. she has been complaint with her medications. PAST MEDICAL HISTORY Cardiovascular: CAD, HTN, Hyperlipidemia Pulmonary: Other (MARIE with CPAP) CENTRAL NERVOUS SYSTEM: Carpal Tunnel Syndrome GI: GERD Heme/Onc: Anemia NOS Hepatobiliary: No pertinent hx Psych: Anxiety Musculoskeletal: Osteoarthritis, Other (morbid obesity) Infectious disease: No pertinent hx ENT: No pertinent hx Renal/: No pertinent hx Endocrine: Hypothyroidism Dermatology: No pertinent hx PAST SURGICAL HISTORY Past Surgical History: Cholecystectomy, CABG, Tubal Ligation, Hysterectomy FAMILY HISTORY Family History: Coronary Artery Disease SOCIAL HISTORY Smoke: Quit ALCOHOL: none Drugs: None Lives: with Family CURRENT MEDICATIONS CURRENT MEDICATIONS Current Medications Medications (Trade) Dose Ordered Sig/Harsha Route PRN Reason Start Time Stop Time Status Last Admin Dose Admin Aspirin (Children'S Aspirin) 243 mg 1X ONCE PO 01/15/19 16:30 01/15/19 16:31 DC 01/15/19 16:30 Aspirin (Ecotrin) 325 mg DAILY PO 01/16/19 09:00 01/16/19 08:47 Clopidogrel Bisulfate (Plavix) 75 mg DAILY PO 01/16/19 09:00 01/16/19 08:47 Levothyroxine Sodium (Synthroid) 100 mcg DAILY06 PO 01/16/19 06:00 01/16/19 06:42 Pantoprazole Sodium (Protonix) 40 mg DAILY PO 01/16/19 09:00 01/16/19 08:47 Spironolactone (Aldactone) 25 mg DAILY PO 01/16/19 09:00 01/16/19 08:47 Alprazolam (Xanax) 0.5 mg BID PO 01/15/19 21:45 01/16/19 08:47 Simvastatin (Zocor) 20 mg HS PO 01/15/19 21:45 01/15/19 22:13 ALLERGIES ALLERGIES: Coded Allergies: diazepam (Verified Allergy, Severe, Hives/shortness of breath/increased anxiety, 02/22/17) lidocaine (Verified Adverse Reaction, Mild, "BRUISES ME IMMEDIATELY", 01/15/19) ROS Review of System 14 point ROS evaluated with pertinent positives noted per HPI PHYSICAL EXAM General: Alert, Oriented X3, Cooperative, No acute distress HEENT: Atraumatic, Mucous membr. moist/pink Lungs: Clear to auscultation, Normal air movement Heart: Regular rate (SR), Other (distant heart sounds) Abdomen: Soft, Other (morbid obesity) Extremities: No cyanosis, No edema Skin: No breakdown Neuro: Normal speech, Sensation intact Psych/Mental Status: Mental status NL, Mood NL MUSCULOSKELETAL: Osteoarthritic changes both hands VITALS/I&O VITALS/I&O: Vital Signs Date Time Temp Pulse Resp B/P (MAP) Pulse Ox O2 Delivery O2 Flow Rate FiO2 01/16/19 08:00 Room Air 01/16/19 07:00 97.4 58 12 141/61 (87) 99 97.4 I & O 01/15/19 01/15/19 01/16/19 15:00 23:00 07:00 Intake Total 0 ml Balance 0 ml LABS Lab: Laboratory Tests Test 01/15/19 16:13 01/15/19 17:23 01/15/19 18:28 01/15/19 20:15 White Blood Count 7.3 x10^3/uL (4.0-11.0) Red Blood Count 4.40 x10^6/uL (3.50-5.40) Hemoglobin 14.1 g/dL (12.0-15.5) Hematocrit 40.7 % (36.0-47.0) Mean Corpuscular Volume 93 fL (79-100) Mean Corpuscular Hemoglobin 32 pg (25-35) Mean Corpuscular Hemoglobin Concent 35 g/dL (31-37) Red Cell Distribution Width 13.4 % (11.5-14.5) Platelet Count 256 x10^3/uL (140-400) Neutrophils (%) (Auto) 45 % (31-73) Lymphocytes (%) (Auto) 41 % (24-48) Monocytes (%) (Auto) 10 % (0-9) H Eosinophils (%) (Auto) 4 % (0-3) H Basophils (%) (Auto) 1 % (0-3) Neutrophils # (Auto) 3.3 x10^3/uL (1.8-7.7) Lymphocytes # (Auto) 3.0 x10^3/uL (1.0-4.8) Monocytes # (Auto) 0.7 x10^3/uL (0.0-1.1) Eosinophils # (Auto) 0.3 x10^3/uL (0.0-0.7) Basophils # (Auto) 0.0 x10^3/uL (0.0-0.2) Prothrombin Time 13.2 SEC (11.7-14.0) Prothrombin Time INR 1.0 (0.8-1.1) Activated Partial Thromboplast Time 32 SEC (24-38) D-Dimer (Tejal) 0.41 ug/mlFEU (0.00-0.50) Sodium Level 141 mmol/L (136-145) Potassium Level 3.9 mmol/L (3.5-5.1) Chloride Level 105 mmol/L (98-107) Carbon Dioxide Level 30 mmol/L (21-32) Anion Gap 6 (6-14) Blood Urea Nitrogen 14 mg/dL (7-20) Creatinine 1.2 mg/dL (0.6-1.0) H Estimated GFR (Cockcroft-Gault) 47.2 BUN/Creatinine Ratio 12 (6-20) Glucose Level 116 mg/dL (70-99) H Calcium Level 9.4 mg/dL (8.5-10.1) Total Bilirubin 0.3 mg/dL (0.2-1.0) Aspartate Amino Transferase (AST) 25 U/L (15-37) Alanine Aminotransferase (ALT) 29 U/L (14-59) Alkaline Phosphatase 72 U/L (46-116) Troponin I Quantitative < 0.017 ng/mL (0.000-0.055) < 0.017 ng/mL (0.000-0.055) Total Protein 8.1 g/dL (6.4-8.2) Albumin 3.7 g/dL (3.4-5.0) Albumin/Globulin Ratio 0.8 (1.0-1.7) L Thyroid Stimulating Hormone (TSH) 1.879 uIU/mL (0.358-3.74) Urine Collection Type Unknown Urine Color Yellow Urine Clarity Cloudy Urine pH 5.0 Urine Specific [place] 1.015 Urine Protein Negative mg/dL (NEG-TRACE) Urine Glucose (UA) Negative mg/dL (NEG) Urine Ketones (Stick) Negative mg/dL (NEG) Urine Blood Negative (NEG) Urine Nitrite Negative (NEG) Urine Bilirubin Negative (NEG) Urine Urobilinogen Dipstick 0.2 mg/dL (0.2 mg/dL) Urine Leukocyte Esterase Small (NEG) Urine RBC 0 /HPF (0-2) Urine WBC 5-10 /HPF (0-4) Urine Squamous Epithelial Cells Mod /LPF Urine Bacteria Few /HPF (0-FEW) Urine Mucus Mod /LPF Glucose (Fingerstick) 97 mg/dL (70-99) Test 01/15/19 23:25 01/16/19 07:08 Troponin I Quantitative < 0.017 ng/mL (0.000-0.055) Glucose (Fingerstick) 120 mg/dL (70-99) H Laboratory Tests 01/15/19 16:13 Laboratory Tests 01/15/19 16:13 ECHOCARDIOGRAM ECHOCARDIOGRAM <Conclusion> The left ventricular systolic function is normal and the ejection fraction is w ithin normal range. The Ejection Fraction is 55-60%. There is normal LV segmental wall motion. Septal motion consistent with conduction abnormality. Doppler and Color Flow revealed trace tricuspid regurgitation.There is mild pulmonary hypertension.The PA pressure was estimated at 39 mmHg. DATE: 08/12/18 1004 HEART CATH HEART CATH Coronary Angiography The patient's coronary anatomy is right dominant. The left main coronary artery is a medium size vessel free of disease. The left main bifurcates to the left anterior descending and circumflex. The left anterior descending artery is a medium size vessel with stenosis. There is a 100% stenosis in the mid segment. The first diagonal branch is a small size vessel free of disease. The circumflex artery is a large size vessel free of disease. The first obtuse marginal branch is a medium size vessel free of disease. The second obtuse marginal branch is a small size vessel free of disease. The third obtuse marginal branch is a small size vessel free of disease. The right coronary artery is a medium size vessel free of disease. The right posterior descending artery is a small size vessel free of disease. The right posterolateral branch is a small size vessel free of disease. The left internal mammary artery to the mid left anterior descending artery segment is patent the LAD is a very small caliber vessel distal to the anastomosis. Left Ventriculography The left ventricle is normal in size with normal contractility. The left ventricular ejection fraction is estimated to be 55%. The left ventricular end diastolic pressure is 18 mmHg. There was no gradient across the aortic valve upon pullback. Conclusion This patient with lime vessel coronary artery disease passing the graft to the LAD that is open and normal. The LAD and the GUERRERO graft are very small in caliber. I do not see anything that would need to be stented in this patient. I would recommend medical treatment and consider a GI workup. DATE: 11/12/15 1631 ASSESSMENT/PLAN ASSESSMENT/PLAN 1. Atypical CP; due to stress and anxiety 2. CAD: past CABG 3. HTN: controlled 4. HLP 5. MARIE: CPAP compliant 6. Hypothyroidism 7. Morbid obesity 8. Metabolic syndrome Recommendations 1. limited TTE, will note EF and if no significant changes then may DC this afternoon 2. Discussed ACS symptoms, if symptoms recur then will consider for outpt stress 3. Continue with secondary prevention 4. Will DC ASA soon with upcoming gastric sleeve and could transition to future plavix moving forward once cleared by her surgeon ÓSCAR HUSSEIN MD 01/16/19 1805: CARDIAC CONSULT ASSESSMENT/PLAN ASSESSMENT/PLAN Pt. seen and examined. Agree with above PATTERNMAKER ALL AROUND note. Non-cardiac chest pain. Normal echo, EF and EKG. ok to dc. Continue asa for now until seen by gastric surgeon. No further CV testing. DOLLY SCHMITZ APRN Jan 16, 2019 10:54 ÓSCAR HUSSEIN MD Jan 16, 2019 18:05
[2019-01-16 11:00] VITALS: BP 141/61
[2019-01-16 11:48] LABS: CHOLESTEROL/HDL RATIO 4.2
--- NOTE | 2019-01-16 13:56 | NUR ---
SS following up with discharge planning. SS reviewed pt chart. Pt is from home with spouse and is currently on room air. No discharge needs noted at this time. SS will continue to follow for discharge planning.
--- NOTE | 2019-01-16 14:08 | CARD ---
MR#: [id number] Date of Study: 01/16/2019 Ordering Physician: DOLLY SCHMITZ, Referring Physician: DOLLY SCHMITZ Tech: Jayde Sandy MERCED APPROVED REPORT EXAM: LIMITED Two-dimensional echocardiogram Other Information Quality : Good INDICATION LV Function:Systolic Morbid Obesity 2D DIMENSIONS RVDd2.8 (2.9-3.5cm)Left Atrium(2D)4.1 (1.6-4.0cm) IVSd1.0 (0.7-1.1cm)Aortic Root(2D)2.9 (2.0-3.7cm) LVDd5.8 (3.9-5.9cm)LVOT Diameter2.2 (1.8-2.4cm) PWd1.0 (0.7-1.1cm)LVDs4.0 (2.5-4.0cm) FS (%) 31.7 %SV98.7 ml LVEF(%)58.9 (>50%) LEFT VENTRICLE The left ventricle is normal size. There is normal left ventricular wall thickness. The left ventricu lar systolic function is normal and the ejection fraction is within normal range. The Ejection Fracti on is 55-60%. There is normal LV segmental wall motion. RIGHT VENTRICLE The right ventricle is normal size. The right ventricular systolic function is normal. ATRIA The left atrium is mildly dilated. The right atrium size is normal. GREAT VESSELS The aortic root is normal in size. PERICARDIAL EFFUSION There is no evidence of significant pericardial effusion. Critical Notification Critical Value: No <Conclusion> The left ventricular systolic function is normal and the ejection fraction is within normal range. Th e Ejection Fraction is 55-60%. There is normal LV segmental wall motion. Limited echo for wall motion only Signed by : Bob Turner, Electronically Approved : 01/16/2019 14:08:24
--- NOTE | 2019-01-16 14:27 | PDOC3 ---
Discharge Summary Date of Admission: Jan 15, 2019 Date of Discharge: Jan 16, 2019 Follow-Up: By telephone Admitting Diagnosis comment: DISCHARGE DX Assessment/Plan Impression: Chest pain extreme morbid obesity mild pulmonary hypertension.The PA pressure was estimated at 39 mmHg. recent echo metabolic syndrome hx gerd ADMITTED tele cvc serial troponin i cardiology consult D/C TODAY IF OK WITH CARDIOLOGY D/W RN home meds tele dvt prophylaxis echo wt reduction needed accuchecks qid protonix DC ASA soon with upcoming gastric sleeve and could transition to plavix , once cleared by her surgeon. 38 min pt exam, chart review, D/C PLANNING > 50% of time spent with exam, chart review, pt care coordination Vitals Vitals Vital Signs Date Time Temp Pulse Resp B/P (MAP) Pulse Ox O2 Delivery O2 Flow Rate FiO2 01/16/19 07:00 97.4 58 12 141/61 (87) 99 Room Air 97.4 Physical Exam General: Alert, Oriented X3, Cooperative, No acute distress Heart: Regular rate Lungs: Clear Abdomen: Normal bowel sounds, Soft, No tenderness Extremities: No clubbing, No cyanosis Skin: No significant lesion Labs LABS HISTORY 11/2015 coronary artery disease: previous PCI (The PCI date was ), hypertension, previous CABG (The CABG date was ), dyslipidemia. INDICATION The indication(s) include : unstable angina , chest pain, dyspnea. CASE TECHNIQUE The patient was brought electively into the cardiac catheterization lab. A timeout was performed confirming the patient's name, date of , procedure, and site of procedure. All necessary parties were wearing the appropriate personal protective equipment and radiation monitoring devices. After explaining the risks and benefits of the procedure, informed consent was obtained.(See nursing notes for medications administered). The right groin was sterilely prepped and draped. The right femoral groin was infiltrated with 1% Lidocaine subcutaneous anesthesia. During this case, Fluoroscopy and low osmolar contrast were used for imaging. A sheath was inserted into the right femoral artery w ithout difficulty. Coronary angiography was performed using coronary diagnostic catheters. The left coronary system was accessed and visualized with a Diagnostic catheter. The right coronary system was accessed and visualized with a Diagnostic catheter. The left ventricle was accessed and visualized with a Diagnostic catheter. The left internal mammary artery was accessed and visua lized with a Diagnostic catheter. Left ventricular/Aortic Valve gradient assessed on pullback. Left ventriculogram was performed in BEY projection. An aortogram of the ascending aorta was performed. Pre-demployment femoral angiogram was performed . Closure device was deployed with a Angioseal without any complications. The patient tolerated the procedure well and there were no complications associated with the procedure. Coronary Angiography The patient's coronary anatomy is right dominant. The left main coronary artery is a medium size vessel free of disease. The left main bifurcates to the left anterior descending and circumflex. The left anterior descending artery is a medium size vessel with stenosis. There is a 100% stenosis in the mid segment. The first diagonal branch is a small size vessel free of disease. The circumflex artery is a large size vessel free of disease. The first obtuse marginal branch is a medium size vessel free of disease. The second obtuse marginal branch is a small size vessel free of disease. The third obtuse marginal branch is a small size vessel free of disease. The right coronary artery is a medium size vessel free of disease. The right posterior descending artery is a small size vessel free of disease. The right posterolateral branch is a small size vessel free of disease. The left internal mammary artery to the mid left anterior descending artery segment is patent the LAD is a very small caliber vessel distal to the anastomosis. Left Ventriculography The left ventricle is normal in size with normal contractility. The left ventricular ejection fraction is estimated to be 55%. The left ventricular end diastolic pressure is 18 mmHg. There was no gradient across the aortic valve upon pullback. Conclusion This patient with lower elwha vessel coronary artery disease passing the graft to the LAD that is open and normal. The LAD and the GUERRERO graft are very small in caliber. FINAL DIAGNOSIS Problems Medical Problems: (1) Chest pain Status: Acute Brief Hospital Course Ms. Avilez is a 53 old [sex] who presented with [CHEST PAIN ] CONDITION AT DISCHARGE: Improved Discharge Medications Current Medications Aspirin (Children'S Aspirin) 243 mg 1X ONCE PO Last administered on 01/15/19at 16:30; Start 01/15/19 at 16:30; Stop 01/15/19 at 16:31; Status DC Ondansetron HCl (Zofran) 4 mg PRN Q8HRS PRN IV NAUSEA/VOMITING; Start 01/15/19 at 17:45; Stop 01/16/19 at 17:44 Morphine Sulfate (Morphine Sulfate) 2 mg PRN Q2HR PRN IV PAIN; Start 01/15/19 at 17:45; Stop 01/16/19 at 17:44 Alprazolam (Xanax) 0.5 mg BID PO ; Start 01/16/19 at 21:00; Stop 01/15/19 at 21:35; Status DC Aspirin (Ecotrin) 325 mg DAILY PO Last administered on 01/16/19at 08:47; Start 01/16/19 at 09:00 Clopidogrel Bisulfate (Plavix) 75 mg DAILY PO Last administered on 01/16/19at 08:47; Start 01/16/19 at 09:00 Levothyroxine Sodium (Synthroid) 100 mcg DAILY06 PO Last administered on 01/16/19at 06:42; Start 01/16/19 at 06:00 Pantoprazole Sodium (Protonix) 40 mg DAILY PO Last administered on 01/16/19at 08 :47; Start 01/16/19 at 09:00 Simvastatin (Zocor) 20 mg HS PO ; Start 01/16/19 at 21:00; Stop 01/15/19 at 21:41; Status DC Spironolactone (Aldactone) 25 mg DAILY PO Last administered on 01/16/19at 08:47; Start 01/16/19 at 09:00 Alprazolam (Xanax) 0.5 mg BID PO Last administered on 01/16/19at 08:47; Start 01/15/19 at 21:45 Simvastatin (Zocor) 20 mg HS PO Last administered on 01/15/19at 22:13; Start 01/15/19 at 21:45 Insulin Human Lispro (HumaLOG) 0-5 UNITS TIDWMEALS SQ ; Start 01/16/19 at 08:00 Dextrose (Dextrose 50%-Water Syringe) 12.5 gm PRN Q15MIN PRN IV SEE COMMENTS; Start 01/16/19 at 06:30 Dextrose 250 ml PRN Q15MIN PRN IV SEE COMMENTS; Start 01/16/19 at 06:30 Active Scripts Active Reported Aspirin 81 Mg Tab.chew 81 Mg PO DAILY Simvastatin 20 Mg Tablet 20 Mg PO HS Metformin Hcl 500 Mg Tablet 500 Mg PO BIDWMEALS Pantoprazole Sodium (Pantoprazole Sodium) 40 Mg Tablet.dr 40 Mg PO DAILY Clopidogrel (Clopidogrel Bisulfate) 75 Mg Tablet 75 Mg PO DAILY Alprazolam 0.5 Mg Tablet 0.5 Mg PO BID Levothyroxine Sodium 25 Mcg Tablet 100 Mcg PO DAILY Spironolactone 25 Mg Tablet 25 Mg PO DAILY Vital Signs Vital Signs Date Time Temp Pulse Resp B/P (MAP) Pulse Ox O2 Delivery O2 Flow Rate FiO2 01/16/19 11:00 97.7 58 12 141/61 (87) 99 Room Air 97.7 Labs Laboratory Tests Test 01/15/19 16:13 01/15/19 17:23 01/15/19 18:28 01/15/19 20:15 White Blood Count 7.3 x10^3/uL (4.0-11.0) Red Blood Count 4.40 x10^6/uL (3.50-5.40) Hemoglobin 14.1 g/dL (12.0-15.5) Hematocrit 40.7 % (36.0-47.0) Mean Corpuscular Volume 93 fL (79-100) Mean Corpuscular Hemoglobin 32 pg (25-35) Mean Corpuscular Hemoglobin Concent 35 g/dL (31-37) Red Cell Distribution Width 13.4 % (11.5-14.5) Platelet Count 256 x10^3/uL (140-400) Neutrophils (%) (Auto) 45 % (31-73) Lymphocytes (%) (Auto) 41 % (24-48) Monocytes (%) (Auto) 10 % (0-9) Eosinophils (%) (Auto) 4 % (0-3) Basophils (%) (Auto) 1 % (0-3) Neutrophils # (Auto) 3.3 x10^3/uL (1.8-7.7) Lymphocytes # (Auto) 3.0 x10^3/uL (1.0-4.8) Monocytes # (Auto) 0.7 x10^3/uL (0.0-1.1) Eosinophils # (Auto) 0.3 x10^3/uL (0.0-0.7) Basophils # (Auto) 0.0 x10^3/uL (0.0-0.2) Prothrombin Time 13.2 SEC (11.7-14.0) Prothromb Time International Ratio 1.0 (0.8-1.1) Activated Partial Thromboplast Time 32 SEC (24-38) D-Dimer (Tejal) 0.41 ug/mlFEU (0.00-0.50) Sodium Level 141 mmol/L (136-145) Potassium Level 3.9 mmol/L (3.5-5.1) Chloride Level 105 mmol/L (98-107) Carbon Dioxide Level 30 mmol/L (21-32) Anion Gap 6 (6-14) Blood Urea Nitrogen 14 mg/dL (7-20) Creatinine 1.2 mg/dL (0.6-1.0) Estimated GFR (Cockcroft-Gault) 47.2 BUN/Creatinine Ratio 12 (6-20) Glucose Level 116 mg/dL (70-99) Calcium Level 9.4 mg/dL (8.5-10.1) Total Bilirubin 0.3 mg/dL (0.2-1.0) Aspartate Amino Transf (AST/SGOT) 25 U/L (15-37) Alanine Aminotransferase (ALT/SGPT) 29 U/L (14-59) Alkaline Phosphatase 72 U/L (46-116) Troponin I Quantitative < 0.017 ng/mL (0.000-0.055) < 0.017 ng/mL (0.000-0.055) Total Protein 8.1 g/dL (6.4-8.2) Albumin 3.7 g/dL (3.4-5.0) Albumin/Globulin Ratio 0.8 (1.0-1.7) Thyroid Stimulating Hormone (TSH) 1.879 uIU/mL (0.358-3.74) Urine Collection Type Unknown Urine Color Yellow Urine Clarity Cloudy Urine pH 5.0 Urine Specific Belden 1.015 Urine Protein Negative mg/dL (NEG-TRACE) Urine Glucose (UA) Negative mg/dL (NEG) Urine Ketones (Stick) Negative mg/dL (NEG) Urine Blood Negative (NEG) Urine Nitrite Negative (NEG) Urine Bilirubin Negative (NEG) Urine Urobilinogen Dipstick 0.2 mg/dL (0.2 mg/dL) Urine Leukocyte Esterase Small (NEG) Urine RBC 0 /HPF (0-2) Urine WBC 5-10 /HPF (0-4) Urine Squamous Epithelial Cells Mod /LPF Urine Bacteria Few /HPF (0-FEW) Urine Mucus Mod /LPF Glucose (Fingerstick) 97 mg/dL (70-99) Test 01/15/19 23:25 01/16/19 07:08 01/16/19 11:00 01/16/19 11:52 Troponin I Quantitative < 0.017 ng/mL (0.000-0.055) Glucose (Fingerstick) 120 mg/dL (70-99) 111 mg/dL (70-99) Triglycerides Level 102 mg/dL (0-150) Cholesterol Level 151 mg/dL (0-200) LDL Cholesterol, Calculated 95 mg/dL (0-100) VLDL Cholesterol, Calculated 20 mg/dL (0-40) Non-HDL Cholesterol Calculated 115 mg/dL (0-129) HDL Cholesterol 36 mg/dL (40-60) Cholesterol/HDL Ratio 4.2 Laboratory Tests Test 01/15/19 16:13 01/15/19 17:23 01/15/19 18:28 01/15/19 20:15 White Blood Count 7.3 x10^3/uL (4.0-11.0) Red Blood Count 4.40 x10^6/uL (3.50-5.40) Hemoglobin 14.1 g/dL (12.0-15.5) Hematocrit 40.7 % (36.0-47.0) Mean Corpuscular Volume 93 fL (79-100) Mean Corpuscular Hemoglobin 32 pg (25-35) Mean Corpuscular Hemoglobin Concent 35 g/dL (31-37) Red Cell Distribution Width 13.4 % (11.5-14.5) Platelet Count 256 x10^3/uL (140-400) Neutrophils (%) (Auto) 45 % (31-73) Lymphocytes (%) (Auto) 41 % (24-48) Monocytes (%) (Auto) 10 % (0-9) Eosinophils (%) (Auto) 4 % (0-3) Basophils (%) (Auto) 1 % (0-3) Neutrophils # (Auto) 3.3 x10^3/uL (1.8-7.7) Lymphocytes # (Auto) 3.0 x10^3/uL (1.0-4.8) Monocytes # (Auto) 0.7 x10^3/uL (0.0-1.1) Eosinophils # (Auto) 0.3 x10^3/uL (0.0-0.7) Basophils # (Auto) 0.0 x10^3/uL (0.0-0.2) Prothrombin Time 13.2 SEC (11.7-14.0) Prothromb Time International Ratio 1.0 (0.8-1.1) Activated Partial Thromboplast Time 32 SEC (24-38) D-Dimer (Tejal) 0.41 ug/mlFEU (0.00-0.50) Sodium Level 141 mmol/L (136-145) Potassium Level 3.9 mmol/L (3.5-5.1) Chloride Level 105 mmol/L (98-107) Carbon Dioxide Level 30 mmol/L (21-32) Anion Gap 6 (6-14) Blood Urea Nitrogen 14 mg/dL (7-20) Creatinine 1.2 mg/dL (0.6-1.0) Estimated GFR (Cockcroft-Gault) 47.2 BUN/Creatinine Ratio 12 (6-20) Glucose Level 116 mg/dL (70-99) Calcium Level 9.4 mg/dL (8.5-10.1) Total Bilirubin 0.3 mg/dL (0.2-1.0) Aspartate Amino Transf (AST/SGOT) 25 U/L (15-37) Alanine Aminotransferase (ALT/SGPT) 29 U/L (14-59) Alkaline Phosphatase 72 U/L (46-116) Troponin I Quantitative < 0.017 ng/mL (0.000-0.055) < 0.017 ng/mL (0.000-0.055) Total Protein 8.1 g/dL (6.4-8.2) Albumin 3.7 g/dL (3.4-5.0) Albumin/Globulin Ratio 0.8 (1.0-1.7) Thyroid Stimulating Hormone (TSH) 1.879 uIU/mL (0.358-3.74) Urine Collection Type Unknown Urine Color Yellow Urine Clarity Cloudy Urine pH 5.0 Urine Specific Belden 1.015 Urine Protein Negative mg/dL (NEG-TRACE) Urine Glucose (UA) Negative mg/dL (NEG) Urine Ketones (Stick) Negative mg/dL (NEG) Urine Blood Negative (NEG) Urine Nitrite Negative (NEG) Urine Bilirubin Negative (NEG) Urine Urobilinogen Dipstick 0.2 mg/dL (0.2 mg/dL) Urine Leukocyte Esterase Small (NEG) Urine RBC 0 /HPF (0-2) Urine WBC 5-10 /HPF (0-4) Urine Squamous Epithelial Cells Mod /LPF Urine Bacteria Few /HPF (0-FEW) Urine Mucus Mod /LPF Glucose (Fingerstick) 97 mg/dL (70-99) Test 01/15/19 23:25 01/16/19 07:08 01/16/19 11:00 01/16/19 11:52 Troponin I Quantitative < 0.017 ng/mL (0.000-0.055) Glucose (Fingerstick) 120 mg/dL (70-99) 111 mg/dL (70-99) Triglycerides Level 102 mg/dL (0-150) Cholesterol Level 151 mg/dL (0-200) LDL Cholesterol, Calculated 95 mg/dL (0-100) VLDL Cholesterol, Calculated 20 mg/dL (0-40) Non-HDL Cholesterol Calculated 115 mg/dL (0-129) HDL Cholesterol 36 mg/dL (40-60) Cholesterol/HDL Ratio 4.2 Allergies Allergies Coded Allergies Type Severity Reaction Last Updated Verified diazepam Allergy Severe Hives/shortness of breath/increased anxiety 02/22/17 Yes lidocaine Adverse Reaction Mild "BRUISES ME IMMEDIATELY" 01/15/19 Yes Disposition/Orders: D/C to Home ERIKA ALLEN MD Jan 16, 2019 14:27
[2019-01-16] MEDS ORDERED: ASPI325T11 PO (14:29)
--- NOTE | 2019-01-16 14:31 | DISCH ---
DISCHARGE INSTRUCTIONS Condition on Discharge Condition on Discharge: Stable Activity After Discharge Activity Instructions for Disc: No restrictions, Activity as tolerated, Avoid exertion, Progressive ambulation Lifting Instructions after Dis: No heavy lifting, No pulling or pushing Exercise Instruction after Dis: Progress as tolerated Driving Instructions after Dis: Do not drive today Weight Bearing Status after Di: Full weight bearing Diet after Discharge Diet after Discharge: Cardiac, Regular Liquid Texture: Thin Liquid Wound Incision Care Wound/Incision Care: No wound care needed Checks after Discharge Checks after discharge: Check blood press - daily Contacting the DR. after DC Call your doctor for: If your condition worsens Treatment/Equipment after DC Adaptive Equipment Issued: None ERIKA ALLEN MD Jan 16, 2019 14:31
[2019-01-16 15:00] VITALS: BP 133/61
--- NOTE | 2019-01-16 18:22 | NUR ---
Discharge: Teaching verbal and written. Reviewed medications, follow-up, ECHO, troponin, Cholesterol, anxiety, ect. Patient verbalized understanding. All belongings with patient. No medication changes continue on aspirin 81mg. IV removed without complications,catheter tip intact. Patient ambulated off of unit accompanied by [facility]
[2019-01-16] MEDS ORDERED: SIMVASTATIN 5 MG TABLET. PO SCH (21:00)
[2019-01-16] MEDS ORDERED: ALPRAZolam 0.5 MG TABLET PO SCH (21:00)
== END 2019-01-16 18:20 | disposition home or self-care (01) | DRG 880 ==
LOC: ER 15:39 → ED HOLD 19:15 → 2 NORTH 20:54
PROVIDERS: ADMIT Family Medicine; ATTEND Family Medicine
PROC: 5A09357 Assistance with Respiratory Ventilation, Less than 24 Consecutive Hours, Continuous Positive Airway Pressure (ICD-10-PCS; principal; 2019-01-15)
DX: F41.9 Anxiety disorder, unspecified (principal); Z68.44 Body mass index [BMI] 60.0-69.9, adult; R07.89 Other chest pain; E88.81 Metabolic syndrome and other insulin resistance; E03.9 Hypothyroidism, unspecified; E66.01 Morbid (severe) obesity due to excess calories; E78.00 Pure hypercholesterolemia, unspecified; E78.5 Hyperlipidemia, unspecified; G47.33 Obstructive sleep apnea (adult) (pediatric); I10 Essential (primary) hypertension; M19.90 Unspecified osteoarthritis, unspecified site; I25.10 Atherosclerotic heart disease of native coronary artery without angina pectoris; J45.909 Unspecified asthma, uncomplicated; K21.9 Gastro-esophageal reflux disease without esophagitis; Z82.49 Family history of ischemic heart disease and other diseases of the circulatory system; Z90.710 Acquired absence of both cervix and uterus; Z95.1 Presence of aortocoronary bypass graft; Z95.5 Presence of coronary angioplasty implant and graft; Z83.3 Family history of diabetes mellitus; Z88.8 Allergy status to other drugs, medicaments and biological substances
CPT/HCPCS: 36415; 71046; 80053; 80061; 81001; 82962; 84443; 84484; 85025; 85379; 85610; 85730; 87086; 93005; 93308; J1815; 99285-25; G0378

== ENCOUNTER → 2020-01-02 | Outpatient (CLI) | payer BC ==
[~2020-01-02] MED LIST changes: +ASPI-630 PO; -LEVO75TA PO; +LEVO75TA90 PO; +SIMV20TA18 PO; -SIMV20TA3 PO
--- NOTE | 2020-01-02 16:47 | KCIC ---
EXAMINATION: CHEST PA LATERAL CLINICAL HISTORY: Reason: ENDOMETRIAL CA, ABNORMAL CXR WITH MULTIPLE LUNG NODULES / Spl. Instructions: / History: EXAM DATE/TIME: 01/02/2020 12:00 AM COMPARISON: 01/15/2019 FINDINGS: Lines, tubes, and devices: None. Cardiomediastinal silhouette: Normal heart size. Lungs and pleura: No evidence of focal airspace consolidation or pleural effusion. Pulmonary vasculature unremarkable. Bones and soft tissues: Intact median sternotomy wires and mediastinal surgical clips in similar alignment. Degenerative changes of the thoracic spine. IMPRESSION: No evidence of acute cardiopulmonary abnormality or significant interval change. Electronically signed by: Woody Meraz DO (01/02/2020 4:44 PM) [id number]
== END | disposition home or self-care (01) ==
LOC: KCIC 15:38
PROVIDERS: ATTEND Obstetrics & Gynecology Gynecologic Oncology
DX: C54.1 Malignant neoplasm of endometrium (principal); R91.8 Other nonspecific abnormal finding of lung field; E66.01 Morbid (severe) obesity due to excess calories
CPT/HCPCS: 71046

== ENCOUNTER → 2020-01-02 | Outpatient (CLI) | payer BC ==
--- NOTE | 2020-01-02 16:42 | KCIC ---
Bilateral digital screening mammograms: Reason for examination: Routine screening. Comparison is made to previous studies dated 08/12/2018 and 01/26/2014. Interpretation is made with the benefit of CAD. The skin and nipples show no abnormalities. No abnormal lymph nodes are seen. The breast parenchyma is predominantly fatty. (Breast density: Category A.) There are no dominant masses, suspicious calcifications or architectural distortions. Impression: No evidence of malignancy. Recommend routine screening. BI-RADS Category 1: Negative. "Our facility is accredited by the [employer] Mammography Program." This patient's information has been entered into a reminder system for the patient to be notified with the results of her examination and a target date for the next mammogram. Electronically signed by: Sofia Carballo MD (01/02/2020 4:39 PM) [id number]
== END | disposition home or self-care (01) ==
LOC: KCIC MAMMO 15:17
PROVIDERS: ATTEND Nurse Practitioner Family
DX: Z12.31 Encounter for screening mammogram for malignant neoplasm of breast (principal)
CPT/HCPCS: 77067

== ENCOUNTER → 2021-03-23 | Outpatient (CLI) | payer BC ==
--- NOTE | 2021-03-24 11:59 | KCIC ---
EXAM: AP, lateral and lumbosacral spot views of the lumbar spine DATE: 03/23/2021 3:36 PM INDICATION: Reason: LUMBAR BACK PAIN FOR FEW MONTHS, NKI / Spl. Instructions: / History: COMPARISON: No Prior FINDINGS: 5 nonrib-bearing lumbar-type vertebral bodies. Vertebral body heights are preserved. Mild L4-5 and se jessica L5-S1 disc height loss. 1.7 Centimeter anterolisthesis of L5 on S1. Advanced facet degenerative changes at L3-4, L4-5, L5-S1. Vascular calcifications. Cholecystectomy clips. IMPRESSION: 1. Multilevel spondylosis as above 2. Negative acute fracture. 3. Anterolisthesis of L5 on S1 measures 1.7 cm, grade 2 anterolisthesis. Electronically signed by: Markel Jo MD (03/24/2021 11:56 AM) [id number]
== END ==
LOC: KCIC 15:33
PROVIDERS: ATTEND Nurse Practitioner Family
DX: M47.817 Spondylosis without myelopathy or radiculopathy, lumbosacral region (principal); M43.17 Spondylolisthesis, lumbosacral region; M51.37 Other intervertebral disc degeneration, lumbosacral region
CPT/HCPCS: 72100

== ENCOUNTER → 2021-07-15 | Outpatient (CLI) | payer BC ==
--- NOTE | 2021-07-15 16:54 | KCIC ---
MR LUMBAR SPINE [id number] Date: 07/15/2021 3:40 PM Indication: LUMBAR PAIN. Low back pain x 6-7 mths, denies radiculopathy. Comparison: CT abdomen pelvis 03/02/2017. Technique: Multi-planar multi-weighted magnetic resonance imaging of the lumbar spine was performed w ithout intravenous contrast using the standard lumbar spine protocol. FINDINGS: Exaggerated lumbar lordosis. 12 mm anterolisthesis at L5-S1 due to bilateral L5 pars defects. No acut e fracture. Mild multilevel degenerative disc desiccation and disc height loss, severe at L5-S1. Fatt y degenerative endplate changes at L5-S1. The conus terminates at a normal level. No abnormal signal is seen within the visualized distal spina l cord. No clumping of intrathecal nerve roots. No soft tissue abnormality in the visualized abdomen or pelvis. T12-L1: No disc bulge. No facet arthropathy. No significant spinal stenosis or neural foraminal narro wing. L1-L2: No disc bulge. No facet arthropathy. No significant spinal stenosis or neural foraminal narrow ing. L2-L3: Disc bulge. Moderate facet arthropathy. No significant spinal stenosis or neural foraminal mariaa rowing. L3-L4: Disc bulge. Severe facet arthropathy. No significant spinal stenosis. Mild lateral recess narr owing. Mild right neural foraminal narrowing. L4-L5: Disc bulge. Severe facet arthropathy. No significant spinal stenosis or neural foraminal narro wing. L5-S1: Disc bulge. Moderate facet arthropathy. No significant spinal stenosis. Severe bilateral neura l foraminal narrowing. IMPRESSION: Grade 2 anterolisthesis at L5-S1 due to bilateral L5 pars defects. Severe bilateral neural foraminal narrowing at L5-S1. No severe spinal canal stenosis. Electronically signed by: Golden Fatima MD (07/15/2021 4:52 PM) [id number]
== END ==
LOC: KCIC MRI 15:24
PROVIDERS: ATTEND Nurse Practitioner Family
DX: M47.817 Spondylosis without myelopathy or radiculopathy, lumbosacral region (principal); M51.37 Other intervertebral disc degeneration, lumbosacral region; M48.07 Spinal stenosis, lumbosacral region; M43.17 Spondylolisthesis, lumbosacral region
CPT/HCPCS: 72148